=== PATIENT | male | born 1945 | race Caucasian/White ===

== ENCOUNTER 2018-02-04 15:46 | Inpatient (IN) | payer MEDICARE ==
[2018-02-04] MEDS ORDERED: ONDANSETRON 4 MG/2 ML VIAL IVP STA (16:34)
[2018-02-04] MEDS ORDERED: SODIUM CHLORIDE 0.9% 1,000 ML IV STA ×2 (16:34)
[2018-02-04] MEDS ORDERED: MORPHINE SULFATE 4 MG/ML SYRINGE IV STA (16:34)
--- NOTE | 2018-02-04 16:35 | ED ---
Abdominal Pain HPI - General Chief Complaint: Abdominal Pain Stated Complaint: Abd Pain Time Seen by Provider: 02/04/18 16:12 Source: patient Mode of arrival: ambulatory Limitations: no limitations - History of Present Illness Initial Comments: Patient is a 72-year-old male presenting for abdominal pain. Patient states that the pain started this morning and is located across his abdomen is been constant. He cannot describe the specifics of the pain but denies any radiation or modifying factors. It is associated with nausea but no vomiting or diarrhea. He also states that he performs a straight cath at least 7 times a day for bladder problems. He also states that he is not had this problem before he denies any fevers, chills, chest pain, shortness of breath. - Related Data Home Medications Medication Instructions Recorded Confirmed ALPRAZolam [ALPRAZolam XR] 0.5 mg PO DAILY 07/27/16 07/27/16 Aspirin EC [Ecotrin Low Dose] 81 mg PO DAILY 07/27/16 07/27/16 Potassium Citrate [Urocit-K] 1,080 mg PO BID 07/27/16 07/27/16 Sildenafil Citrate [Viagra] 100 mg PO ONCE 07/27/16 07/27/16 Simvastatin [Zocor] 20 mg PO DAILY 07/27/16 07/27/16 Testosterone [Androgel 1.62% Gel 2.5 gm INTRADERMA DAILY 07/27/16 07/27/16 Packet] Allergies Allergy/AdvReac Type Severity Reaction Status Date / Time iodine AdvReac sneezing Verified 02/04/18 15:53 Iodine and Iodide Containing AdvReac sneezing Verified 02/04/18 15:53 Produc Review of Systems ROS Statement: Those systems with pertinent positive or pertinent negative responses have been documented in the HPI. Constitutional: Negative for chills, fatigue and fever. HENT: Negative for congestion. Respiratory: Negative for chest tightness, shortness of breath and wheezing. Negative for cough Cardiovascular: Negative for chest pain and palpitations. Gastrointestinal: Positive for abdominal pain and nausea. Negative for abdominal distention, diarrhea, and vomiting. Genitourinary: Negative for dysuria. Musculoskeletal: Negative for back pain, neck pain and neck stiffness. Skin: Negative for color change. Neurological: Negative for dizziness, speech difficulty, weakness and light- headedness. Psychiatric/Behavioral: Negative for agitation and confusion. Negative for anxiety ROS Other: All systems not noted in ROS Statement are negative. Past Medical History Past Medical History: Cancer, Hyperlipidemia Additional Past Medical History / Comment(s): Bladder CA 2008, colon polyps, CAD , Cholelithiasis, chronic pancreatitis History of Any Multi-Drug Resistant Organisms: Unobtainable Past Surgical History: Heart Catheterization Additional Past Surgical History / Comment(s): custectomy with dillan bladder replacements, sinus surgery, colonoscopy Past Anesthesia/Blood Transfusion Reactions: Unable to Obtain Past Psychological History: Anxiety Smoking Status: Former smoker Past Alcohol Use History: None Reported Past Drug Use History: None Reported General Exam - General Exam Comments Initial Comments: Constitutional: Pt is oriented to person, place, and time. Pt appears well- developed and well-nourished. No distress. HENT: Head: Normocephalic and atraumatic. Eyes: EOM are normal. Neck: Normal range of motion. Neck supple. Cardiovascular: Normal rate, regular rhythm, S1 normal, S2 normal and normal heart sounds. Exam reveals no gallop and no friction rub. No murmur heard. Pulmonary/Chest: Effort normal and breath sounds normal. No tachypnea and no bradypnea. No respiratory distress. No wheezes or rales noted. Abdominal: Soft. Bowel sounds are normal. Pt exhibits no shifting dullness, no distension, no pulsatile liver, no fluid wave, no abdominal bruit and no ascites. . There is no rigidity, no rebound, no guarding, no tenderness at McBurney's point and negative Calabrese's sign. There is tenderness to palpation of the lower abdomen without peritoneal signs. Abdominal scars are well-healed with no evidence of erythema or infection. Musculoskeletal: Normal range of motion. Neurological: Pt is alert and oriented to person, place, and time. No cranial nerve deficit. Skin: Skin is warm and dry. No rash noted. Pt is not diaphoretic. No erythema. No pallor. Psychiatric: Pt has a normal mood and affect. Pt behavior is normal. Thought content normal. Limitations: no limitations Course Vital Signs 02/04/18 02/04/18 02/04/18 15:51 16:30 17:34 Temperature 98.0 F 98.5 F Pulse Rate 56 L 45 L 53 L Respiratory 20 18 18 Rate Blood Pressure 167/82 136/80 165/85 O2 Sat by Pulse 99 98 100 Oximetry 02/04/18 02/04/18 02/04/18 18:34 19:07 20:50 Temperature 98.7 F 98.8 F Pulse Rate 62 64 63 Respiratory 18 18 18 Rate Blood Pressure 182/94 165/83 174/85 O2 Sat by Pulse 99 96 97 Oximetry 02/04/18 21:19 Temperature 98.0 F Pulse Rate 61 Respiratory 18 Rate Blood Pressure 116/60 O2 Sat by Pulse 100 Oximetry - Reevaluation(s) Reevaluation #1: 02/04/18 20:48 Patient continues to rate hemodynamically stable. There is mild leukocytosis at 12.3 with some evidence of urinary tract infection but this is unclear if this is truly an infection as the patient has straight catheter daily. Medical Decision Making - Medical Decision Making Laboratory studies showed that there is mild leukocytosis at 12.3 and electrolytes are relatively within normal limits. There is no evidence of transaminitis with a keratitis and urinalysis was consistent with a urinary tract infection but this is unclear if this is truly infection or chronic findings as the patient self caths. Nonetheless, he was started on Rocephin. CT was performed and showed findings either represent a partial small bowel traction or early complete small bowel obstruction. Because of this, general surgery, Dr. Peralta, was consult it and he recommended patient be admitted to medicine. Additionally, NG tube was not placed as the patient was not actively vomiting but the patient was made nothing by mouth and had continuous fluids. Explained all labs and diagnostic test results and that we will admit patient to hospital. Pt is agreeable to plan and case has been discussed with Dr. Simpson and they agree to accept the pt. - Lab Data Result diagrams: 02/04/18 16:38 02/04/18 16:38 Lab Results 02/04/18 02/04/18 02/04/18 Range/Units 16:37 16:38 16:38 WBC 12.3 H (3.8-10.6) k/uL RBC 5.33 (4.30-5.90) m/uL Hgb 14.0 (13.0-17.5) gm/dL Hct 43.5 (39.0-53.0) % MCV 81.6 (80.0-100.0) fL MCH 26.2 (25.0-35.0) pg MCHC 32.1 (31.0-37.0) g/dL RDW 15.9 H (11.5-15.5) % Plt Count 270 (150-450) k/uL Neutrophils % (Manual) 76 % Band Neutrophils % 3 % Lymphocytes % (Manual) 16 % Monocytes % (Manual) 2 % Eosinophils % (Manual) 3 % Neutrophils # (Manual) 9.70 H (1.3-7.7) k/uL Lymphocytes # (Manual) 1.97 (1.0-4.8) k/uL Monocytes # (Manual) 0.25 (0-1.0) k/uL Eosinophils # (Manual) 0.37 (0-0.7) k/uL Nucleated RBCs 0 (0-0) /100 WBC Manual Slide Review Performed Reactive Lymphocytes Present PT (9.0-12.0) sec INR (<1.2) APTT (22.0-30.0) sec Sodium 133 L (137-145) mmol/L Potassium 5.1 (3.5-5.1) mmol/L Chloride 106 (98-107) mmol/L Carbon Dioxide 14 L (22-30) mmol/L Anion Gap 13 mmol/L BUN 34 H (9-20) mg/dL Creatinine 1.20 (0.66-1.25) mg/dL Est GFR (CKD-EPI)AfAm 71 (>60 ml/min/1.73 sqM) Est GFR (CKD-EPI)NonAf 61 (>60 ml/min/1.73 sqM) Glucose 127 H (74-99) mg/dL POC Glucose (mg/dL) 127 H (75-99) mg/dL POC Glu Stippler Mohini Witt Plasma Lactic Acid Yuan (0.7-2.0) mmol/L Calcium 9.4 (8.4-10.2) mg/dL Total Bilirubin 0.6 (0.2-1.3) mg/dL AST 26 (17-59) U/L ALT 33 (21-72) U/L Alkaline Phosphatase 94 (38-126) U/L Troponin I (0.000-0.034) ng/mL Total Protein 8.2 (6.3-8.2) g/dL Albumin 4.5 (3.5-5.0) g/dL Lipase 93 (23-300) U/L Urine Color Urine Appearance (Clear) Urine pH (5.0-8.0) Ur Specific Ovid (1.001-1.035) Urine Protein (Negative) Urine Glucose (UA) (Negative) Urine Ketones (Negative) Urine Blood (Negative) Urine Nitrite (Negative) Urine Bilirubin (Negative) Urine Urobilinogen (<2.0) mg/dL Ur Leukocyte Esterase (Negative) Urine RBC (0-5) /hpf Urine WBC (0-5) /hpf Urine WBC Clumps (None) /hpf Ur Squamous Epith Cells (0-4) /hpf Urine Bacteria (None) /hpf Urine Mucus (None) /hpf 02/04/18 02/04/18 02/04/18 Range/Units 16:38 16:38 16:38 WBC (3.8-10.6) k/uL RBC (4.30-5.90) m/uL Hgb (13.0-17.5) gm/dL Hct (39.0-53.0) % MCV (80.0-100.0) fL MCH (25.0-35.0) pg MCHC (31.0-37.0) g/dL RDW (11.5-15.5) % Plt Count (150-450) k/uL Neutrophils % (Manual) % Band Neutrophils % % Lymphocytes % (Manual) % Monocytes % (Manual) % Eosinophils % (Manual) % Neutrophils # (Manual) (1.3-7.7) k/uL Lymphocytes # (Manual) (1.0-4.8) k/uL Monocytes # (Manual) (0-1.0) k/uL Eosinophils # (Manual) (0-0.7) k/uL Nucleated RBCs (0-0) /100 WBC Manual Slide Review Reactive Lymphocytes PT 10.0 (9.0-12.0) sec INR 1.0 (<1.2) APTT 21.5 L (22.0-30.0) sec Sodium (137-145) mmol/L Potassium (3.5-5.1) mmol/L Chloride (98-107) mmol/L Carbon Dioxide (22-30) mmol/L Anion Gap mmol/L BUN (9-20) mg/dL Creatinine (0.66-1.25) mg/dL Est GFR (CKD-EPI)AfAm (>60 ml/min/1.73 sqM) Est GFR (CKD-EPI)NonAf (>60 ml/min/1.73 sqM) Glucose (74-99) mg/dL POC Glucose (mg/dL) (75-99) mg/dL POC Glu Stippler ID Plasma Lactic Acid Yuan 1.1 (0.7-2.0) mmol/L Calcium (8.4-10.2) mg/dL Total Bilirubin (0.2-1.3) mg/dL AST (17-59) U/L ALT (21-72) U/L Alkaline Phosphatase (38-126) U/L Troponin I <0.012 (0.000-0.034) ng/mL Total Protein (6.3-8.2) g/dL Albumin (3.5-5.0) g/dL Lipase (23-300) U/L Urine Color Urine Appearance (Clear) Urine pH (5.0-8.0) Ur Specific Ovid (1.001-1.035) Urine Protein (Negative) Urine Glucose (UA) (Negative) Urine Ketones (Negative) Urine Blood (Negative) Urine Nitrite (Negative) Urine Bilirubin (Negative) Urine Urobilinogen (<2.0) mg/dL Ur Leukocyte Esterase (Negative) Urine RBC (0-5) /hpf Urine WBC (0-5) /hpf Urine WBC Clumps (None) /hpf Ur Squamous Epith Cells (0-4) /hpf Urine Bacteria (None) /hpf Urine Mucus (None) /hpf 02/04/18 Range/Units 17:32 WBC (3.8-10.6) k/uL RBC (4.30-5.90) m/uL Hgb (13.0-17.5) gm/dL Hct (39.0-53.0) % MCV (80.0-100.0) fL MCH (25.0-35.0) pg MCHC (31.0-37.0) g/dL RDW (11.5-15.5) % Plt Count (150-450) k/uL Neutrophils % (Manual) % Band Neutrophils % % Lymphocytes % (Manual) % Monocytes % (Manual) % Eosinophils % (Manual) % Neutrophils # (Manual) (1.3-7.7) k/uL Lymphocytes # (Manual) (1.0-4.8) k/uL Monocytes # (Manual) (0-1.0) k/uL Eosinophils # (Manual) (0-0.7) k/uL Nucleated RBCs (0-0) /100 WBC Manual Slide Review Reactive Lymphocytes PT (9.0-12.0) sec INR (<1.2) APTT (22.0-30.0) sec Sodium (137-145) mmol/L Potassium (3.5-5.1) mmol/L Chloride (98-107) mmol/L Carbon Dioxide (22-30) mmol/L Anion Gap mmol/L BUN (9-20) mg/dL Creatinine (0.66-1.25) mg/dL Est GFR (CKD-EPI)AfAm (>60 ml/min/1.73 sqM) Est GFR (CKD-EPI)NonAf (>60 ml/min/1.73 sqM) Glucose (74-99) mg/dL POC Glucose (mg/dL) (75-99) mg/dL POC Glu Stippler ID Plasma Lactic Acid Yuan (0.7-2.0) mmol/L Calcium (8.4-10.2) mg/dL Total Bilirubin (0.2-1.3) mg/dL AST (17-59) U/L ALT (21-72) U/L Alkaline Phosphatase (38-126) U/L Troponin I (0.000-0.034) ng/mL Total Protein (6.3-8.2) g/dL Albumin (3.5-5.0) g/dL Lipase (23-300) U/L Urine Color Light Yellow Urine Appearance Cloudy (Clear) Urine pH 6.5 (5.0-8.0) Ur Specific Ovid 1.009 (1.001-1.035) Urine Protein 1+ H (Negative) Urine Glucose (UA) Negative (Negative) Urine Ketones Negative (Negative) Urine Blood Trace H (Negative) Urine Nitrite Positive (Negative) Urine Bilirubin Negative (Negative) Urine Urobilinogen <2.0 (<2.0) mg/dL Ur Leukocyte Esterase Large H (Negative) Urine RBC 11 H (0-5) /hpf Urine WBC 160 H (0-5) /hpf Urine WBC Clumps Few H (None) /hpf Ur Squamous Epith Cells <1 (0-4) /hpf Urine Bacteria Many H (None) /hpf Urine Mucus Rare H (None) /hpf - EKG Data EKG Comments: EKG shows sinus bradycardia with a rate of 46. CO interval 142, QRS 96, QTC 441. There is no significant ST depressions or elevations. Disposition Clinical Impression: Small bowel obstruction, Urinary tract infection Disposition: ADMITTED IP TO THIS [facility] Condition: Fair Referrals: Gilberto Holland DO [Primary Care Provider] - 1-2 days Decision to Admit Reason: Admit from EC Decision Date: 02/04/18 Decision Time: 21:54
[2018-02-04 16:38] LABS: Glucose,Whole Blood 127 mg/dL (75-99)
[2018-02-04 17:02] LABS: Albumin 4.5 g/dL (3.5-5.0); Calcium 9.4 mg/dL (8.4-10.2); Potassium 5.1 mmol/L (3.5-5.1); Total Bilirubin 0.6 mg/dL (0.2-1.3); Total Protein 8.2 g/dL (6.3-8.2)
[2018-02-04 17:16] LABS: HCT 43.5 % (39.0-53.0); MCH 26.2 pg (25.0-35.0); MCHC 32.1 g/dL (31.0-37.0); MCV 81.6 fL (80.0-100.0); Mean Platelet Volume 6.6; Platelet Count 270 k/uL (150-450); RBC 5.33 m/uL (4.30-5.90); RDW 15.9 % (11.5-15.5); WBC 12.3 k/uL (3.8-10.6)
[2018-02-04 17:17] LABS: Partial Thromboplastin Time 21.5 sec (22.0-30.0)
[2018-02-04 17:44] LABS: Band Neutrophils % 3 %; Eosinophils # (M) 0.37 k/uL (0-0.7); Lymphocytes # (M) 1.97 k/uL (1.0-4.8); Monocytes # (M) 0.25 k/uL (0-1.0); Neutrophils % (M) 76 %; Nucleated Red Blood Cells 0 /100 WBC (0-0); Reactive Lymphocytes Present; Total Cells Counted 100
[2018-02-04 17:51] LABS: Appearance,Urine Cloudy (Clear); Bacteria,Urine Many /hpf; Bilirubin,Urine Negative (Negative); Blood,Urine Trace (Negative); Color,Urine Light Yellow; Glucose,Urine (UA) Negative (Negative); Ketones,Urine Negative (Negative); Leukocyte Esterase,Urine Large (Negative); Mucus,Urine Rare /hpf; Nitrite,Urine Positive (Negative); PH, Urine 6.5 (5.0-8.0); Protein,Urine 1+ (Negative); RBC,Urine 11 /hpf (0-5); Specific Gravity,Urine 1.009 (1.001-1.035); Squamous Epithelial Cell,Urine <1 /hpf (0-4); Urobilinogen,Urine <2.0 mg/dL (<2.0); WBC,Urine 160 /hpf (0-5)
[2018-02-04] MEDS ORDERED: BARIUM SULFATE 450 ML ORAL.SUSP BOTTLE PO PRN (17:59)
[2018-02-04] MEDS ORDERED: methylPREDNISolone SOD SUCCI 125 MG/2 ML VIAL IV STA (18:10)
[2018-02-04] MEDS ORDERED: diphenhydrAMINE 50 MG/ML 1 ML VIAL IVP STA (18:10)
[2018-02-04] MEDS ORDERED: FAMOTIDINE 20 MG/2 ML VIAL IV STA (18:10)
[2018-02-04] MEDS ORDERED: HYDROmorphone 0.5 MG/0.5 ML SYRINGE IVP STA (18:16)
[2018-02-04] MEDS ORDERED: cefTRIAXone IN SWFI 1,000 MG/10 ML SYRINGE IVP STA (20:47)
--- NOTE | 2018-02-04 20:54 | CT ---
EXAMINATION TYPE: CT abdomen pelvis wo con DATE OF EXAM: 02/04/2018 COMPARISON: 12/26/2013 HISTORY: Lower abdominal pain with nausea today. CT DLP: 566.2 mGycm Automated exposure control for dose reduction was used. TECHNIQUE: Helical acquisition of images was performed from the lung bases through the pelvis. FINDINGS: LUNG BASES: Early fibrotic changes are seen at the lung bases. Small hiatal hernia is also noted. LIVER/GB: Multiple dense gallstones are seen of the gallbladder neck and body. PANCREAS: There is new prominence of the pancreatic head and uncinate process on series 3 image 30 th rough 34, however there is no ductal dilatation and there is proximal atrophy of the pancreas with di ffuse parenchymal calcifications from chronic pancreatitis. SPLEEN: No significant abnormality is seen. ADRENALS: No significant abnormality is seen. KIDNEYS: There is left-sided renal pelvic prominence and uroepithelial thickening such as on series 3 image 36. No calyceal dilatation to suggest current hydronephrosis. Findings could be reactive and i nflammatory.. REPRODUCTIVE ORGANS: Heterogenous containing central zone calcifications. URINARY BLADDER: The urinary bladder is elongated and may be tethered by prior adhesions as it abuts the anastomotic small bowel site, however there is no air within the urinary bladder to currently julien ggest fistulization. Surgical clips are seen in the inferior margin of the urinary bladder. ADENOPATHY: No greater than 1 cm short axis lymph node within the abdomen or pelvis. OSSEOUS STRUCTURES: Multilevel degenerative change of the spine. BOWEL: There are multiple loops of dilated small bowel throughout the abdomen some of which contain small bowel feces sign. There is a distal small bowel anastomotic site with both proximal and distal dilatation at the anastomotic site. Just proximal to the anastomotic site on series 3 image 70 throug h 73 there is an area of caliber narrowing of the small bowel without beaking suggesting incomplete s mall bowel obstruction/partial small bowel obstruction or early developing complete small bowel obstr uction. Again there is dilatation after the anastomotic site and dilatation of the terminal ileum wit h partially fluid filled cecum. No large bowel dilatation although the large bowel is also not collap sed. Few scattered diverticula are noted of the large bowel. There is mild mesenteric congestion and perienteric fat stranding. OTHER: Numerous surgical clips are seen within the pelvis. Extensive vascular calcifications are note d of the abdominal aorta and its branches. IMPRESSION: 1. FINDINGS EITHER REPRESENTING PARTIAL SMALL BOWEL OBSTRUCTION OR EARLY COMPLETE SMALL BOWEL OBSTRUC TION THERE IS FOCAL AREA OF NARROWING OF THE DISTAL ILEUM PROXIMAL TO THE ANASTOMOTIC SITE WITHOUT CURRENT BEAKING. HOWEVER THE ILEUM REMAINS DILATED DISTAL TO THE ANASTOMOTIC SITE. THERE IS ALSO AD JACENT PERIENTERIC MESENTERIC CONGESTION AND INFLAMMATORY FAT STRANDING. 2. NEW PROMINENCE OF THE PANCREATIC HEAD WITHOUT DUCTAL DILATATION IS SEEN. FURTHER EVALUATION WITH T HREE-PHASE ENHANCED ABDOMEN IS RECOMMENDED TO ENSURE NO UNDERLYING PANCREATIC MASS IN THIS PATIENT WI TH CHRONIC PANCREATITIS SEQUELA. 3. TENTING AND TETHERING OF THE URINARY BLADDER ADJACENT TO THE SMALL BOWEL ANASTOMOTIC SITE WITHOUT AIR IN THE URINARY BLADDER TO SUGGEST CURRENT FISTULIZATION. 4. LEFT RENAL PELVIC MILD DILATATION WITHOUT HYDRONEPHROSIS IN ADDITION TO LEFT RENAL PELVIC UROEPITH ELIAL THICKENING. THIS COULD BE REACTIVE TO THE ADJACENT INFLAMMATORY PROCESS. NO OBSTRUCTING STONE I S SEEN. 5. CHOLELITHIASIS.
[2018-02-04] MEDS ORDERED: MORPHINE SULFATE 4 MG/ML SYRINGE IVP STA (21:27)
[2018-02-04] MEDS ORDERED: ONDANSETRON 4 MG/2 ML VIAL IVP PRN (21:56)
[2018-02-04] MEDS ORDERED: NALOXONE 0.4 MG/ML 1 ML VIAL IV PRN (21:56)
[2018-02-04] MEDS ORDERED: MORPHINE SULFATE 4 MG/ML SYRINGE IV PRN (21:56)
[2018-02-04] MEDS: SODIUM CHLORIDE 0.9% 1,000 ML IV SCH (22:23)
[2018-02-04 23:27] VITALS: BMI 26.6
--- NOTE | 2018-02-05 12:21 | P.GSCN ---
History of Present Illness Consult date: 02/05/18 History of present illness: 72-year-old male presents to the emergency department with complaints of generalized abdominal pain. He states that he also is feeling nauseous. He states that the symptoms began approximately 24 hours prior to his arrival to the emergency department. He states that his last bowel movement was 2 days ago and it was around that time that he also had his last episode of flatus. He is noted to have a history of bladder cancer and has had a neobladder creation at the [facility]. He denies ever having this type of pain or symptoms previously. He states that recently he has been performing straight catheterization for urination. CT of the abdomen and pelvis was performed in the emergency department and the small bowel obstruction was diagnosed. The patient was noted to have distended loops of bowel and a distended stomach. Nasogastric tube was not placed by the emergency department. Review of Systems All systems: negative Past Medical History Past Medical History: Cancer, Hyperlipidemia Additional Past Medical History / Comment(s): Bladder CA 2008, colon polyps, CAD , Cholelithiasis, chronic pancreatitis History of Any Multi-Drug Resistant Organisms: Unobtainable Past Surgical History: Heart Catheterization Additional Past Surgical History / Comment(s): custectomy with dillan bladder replacements, sinus surgery, colonoscopy Past Anesthesia/Blood Transfusion Reactions: Unable to Obtain Past Psychological History: Anxiety Smoking Status: Former smoker Past Alcohol Use History: None Reported Past Drug Use History: None Reported Medications and Allergies Home Medications Medication Instructions Recorded Confirmed Type ALPRAZolam [ALPRAZolam XR] 0.5 mg PO Q6H PRN 07/27/16 02/05/18 History Aspirin EC [Ecotrin Low Dose] 81 mg PO DAILY 07/27/16 02/05/18 History Simvastatin [Zocor] 20 mg PO DAILY 07/27/16 02/05/18 History Testosterone [Androgel 1.62% Gel 2.5 gm INTRADERMA DAILY 07/27/16 02/05/18 History Packet] Atenolol [Tenormin] 25 mg PO DAILY 02/05/18 02/05/18 History Potassium Citrate [Potassium 40 meq PO DAILY 02/05/18 02/05/18 History Citrate ER] Allergies Allergy/AdvReac Type Severity Reaction Status Date / Time iodine AdvReac sneezing Verified 02/05/18 11:46 Iodine and Iodide Containing AdvReac sneezing Verified 02/05/18 11:46 Produc Surgical - Exam Osteopathic Statement: *. No significant issues noted on an osteopathic structural exam other than those noted in the History and Physical/Consult. Vital Signs Temp Pulse Resp BP Pulse Ox 98.0 F 56 L 20 167/82 99 02/04/18 15:51 02/04/18 15:51 02/04/18 15:51 02/04/18 15:51 02/04/18 15:51 - General well nourished, no distress - Eyes PERRL - Neck trachea midline - Respiratory No difficulty with respiration - Abdomen Soft, mildly tender in his generalized abdomen, moderate distention, no rebound , no guarding - Neurologic normal coordination, normal sensation - Psychiatric oriented to time, oriented to person, oriented to place, speech is normal Results - Labs 02/04/18 16:38 02/04/18 16:38 Abnormal Lab Results - Last 24 Hours (Table) 02/04/18 02/04/18 02/04/18 Range/Units 16:37 16:38 16:38 WBC 12.3 H (3.8-10.6) k/uL RDW 15.9 H (11.5-15.5) % Neutrophils # (Manual) 9.70 H (1.3-7.7) k/uL APTT (22.0-30.0) sec Sodium 133 L (137-145) mmol/L Carbon Dioxide 14 L (22-30) mmol/L BUN 34 H (9-20) mg/dL Glucose 127 H (74-99) mg/dL POC Glucose (mg/dL) 127 H (75-99) mg/dL Urine Protein (Negative) Urine Blood (Negative) Ur Leukocyte Esterase (Negative) Urine RBC (0-5) /hpf Urine WBC (0-5) /hpf Urine WBC Clumps (None) /hpf Urine Bacteria (None) /hpf Urine Mucus (None) /hpf 02/04/18 02/04/18 Range/Units 16:38 17:32 WBC (3.8-10.6) k/uL RDW (11.5-15.5) % Neutrophils # (Manual) (1.3-7.7) k/uL APTT 21.5 L (22.0-30.0) sec Sodium (137-145) mmol/L Carbon Dioxide (22-30) mmol/L BUN (9-20) mg/dL Glucose (74-99) mg/dL POC Glucose (mg/dL) (75-99) mg/dL Urine Protein 1+ H (Negative) Urine Blood Trace H (Negative) Ur Leukocyte Esterase Large H (Negative) Urine RBC 11 H (0-5) /hpf Urine WBC 160 H (0-5) /hpf Urine WBC Clumps Few H (None) /hpf Urine Bacteria Many H (None) /hpf Urine Mucus Rare H (None) /hpf Microbiology - Last 24 Hours (Table) 02/04/18 17:32 Urine Culture - Preliminary Urine,Catheterized Diabetes panel 02/04/18 Range/Units 16:38 Sodium 133 L (137-145) mmol/L Potassium 5.1 (3.5-5.1) mmol/L Chloride 106 (98-107) mmol/L Carbon Dioxide 14 L (22-30) mmol/L BUN 34 H (9-20) mg/dL Creatinine 1.20 (0.66-1.25) mg/dL Glucose 127 H (74-99) mg/dL Calcium 9.4 (8.4-10.2) mg/dL AST 26 (17-59) U/L ALT 33 (21-72) U/L Alkaline Phosphatase 94 (38-126) U/L Total Protein 8.2 (6.3-8.2) g/dL Albumin 4.5 (3.5-5.0) g/dL Calcium panel 02/04/18 Range/Units 16:38 Calcium 9.4 (8.4-10.2) mg/dL Albumin 4.5 (3.5-5.0) g/dL Pituitary panel 02/04/18 Range/Units 16:38 Sodium 133 L (137-145) mmol/L Potassium 5.1 (3.5-5.1) mmol/L Chloride 106 (98-107) mmol/L Carbon Dioxide 14 L (22-30) mmol/L BUN 34 H (9-20) mg/dL Creatinine 1.20 (0.66-1.25) mg/dL Glucose 127 H (74-99) mg/dL Calcium 9.4 (8.4-10.2) mg/dL Adrenal panel 02/04/18 Range/Units 16:38 Sodium 133 L (137-145) mmol/L Potassium 5.1 (3.5-5.1) mmol/L Chloride 106 (98-107) mmol/L Carbon Dioxide 14 L (22-30) mmol/L BUN 34 H (9-20) mg/dL Creatinine 1.20 (0.66-1.25) mg/dL Glucose 127 H (74-99) mg/dL Calcium 9.4 (8.4-10.2) mg/dL Total Bilirubin 0.6 (0.2-1.3) mg/dL AST 26 (17-59) U/L ALT 33 (21-72) U/L Alkaline Phosphatase 94 (38-126) U/L Total Protein 8.2 (6.3-8.2) g/dL Albumin 4.5 (3.5-5.0) g/dL - Imaging CT scan - abdomen: report reviewed, image reviewed (Likely developing small bowel obstruction with distended loops of small bowel and distended stomach) CT scan - pelvis: report reviewed, image reviewed Assessment and Plan (1) Small bowel obstruction Narrative/Plan: 72-year-old male with small bowel obstruction - Due to continued moderate distention and continued nausea per the patient, we' ll place NG tube - Nothing by mouth - Anti-emetics for nausea relief - Due to the history of neobladder and bladder cancer, if any concerns for urinary symptoms, recommend urology consultation - Will await bowel function after nasogastric decompression Thank you for this consultation, I look forward in providing in this patient's care. Current Visit: Yes Status: Acute Code(s): K56.609 - UNSP INTESTNL OBST, UNSP TO PARTIAL VERSUS COMPLETE OBST SNOMED Code(s): 819503090
[2018-02-05] MEDS ORDERED: SODIUM CHLORIDE 0.9% 1,000 ML IV ONE (14:05)
[2018-02-05] MEDS: SODIUM CHLORIDE 0.9% 1,000 ML IV SCH (14:09)
[2018-02-05] MEDS ORDERED: MELATONIN 3 MG TABLET PO PRN (15:26)
[2018-02-05] MEDS ORDERED: CALCIUM CARBONATE 500 MG CHEWABLE PO PRN (15:26)
[2018-02-05] MEDS: ATENOLOL 25 MG TAB PO SCH (16:54)
[2018-02-05] MEDS: SODIUM CHLORIDE 0.9% 1,000 ML with SODIUM BICARB (1 MEQ/ML) 50 ML IV SCH ×2 (16:59)
[2018-02-05] MEDS: cefTRIAXone IN SWFI 1,000 MG/10 ML SYRINGE IVP SCH (17:00)
[2018-02-05] MEDS: ENOXAPARIN 40 MG/0.4 ML SYRINGE SQ SCH (17:00)
--- NOTE | 2018-02-05 18:06 | HP ---
HISTORY AND PHYSICAL DATE OF ADMISSION: 02/04/18. DATE OF SERVICE: 02/05/18 PRESENTING COMPLAINT: Abdominal pain. HISTORY OF PRESENTING COMPLAINT: A very pleasant 72-year-old patient of Dr. Holland. Chronic stable medical conditions include hyperlipidemia, chronic stable angina. The patient had a cardiac catheterization about 2 years ago, found about 35% blockage and managed medically by Dr. Metcalf, anxiety that is stable. The patient had bladder cancer back in 2007 and the patient had gone to [facility] where a new bladder was created. The patient did well for about 5 years and then patient had to start doing self catheterization; that is for close to about 7 years. Yesterday evening patient started off with lower abdominal pain and it progressed to get much worse, diffuse in nature. The patient is having nausea. Only after patient got admitted the patient did vomit earlier today once. There was no fever and chills. Normally patient has a bowel movement once or twice a day. The pain was more to the lower abdomen, did not radiate anywhere. The patient did have a CT scan of the abdomen in the ER that showed multiple small bowel air-fluid levels and some narrowing in the distal colon. This afternoon NG tube was ordered by General Surgery. ER physician has spoken to General Surgery from the ER. The patient has not passed any flatus since yesterday morning. REVIEW OF SYSTEMS: CONSTITUTIONAL: Tired. HEENT: None. RESPIRATORY: None. CARDIOVASCULAR: None. GASTROINTESTINAL: As above. GENITOURINARY: As above. MUSCULOSKELETAL: None. DERMATOLOGICAL: None. HEMATOLOGIC: None. LYMPHATIC: None. PSYCHIATRY: None. NEUROLOGICAL: None. PAST MEDICAL HISTORY: Bladder cancer, hyperlipidemia, angina, nonobstructive 30% coronary artery disease, anxiety, cholelithiasis, chronic pancreatitis, colon polyps. PAST SURGICAL HISTORY: Cardiac catheterization, neobladder formation, sinus surgery. SOCIAL HISTORY: Alone, retired. No smoking. No alcohol. FAMILY HISTORY: Reviewed, noncontributory to presentation. HOME MEDICATIONS: 1. AndroGel 1.62% 2.5 interdermal daily. 2. Zocor 20 mg p.o. daily. 3. Potassium 40 mEq p.o. daily. 4. Tenormin 25 mg p.o. daily. 5. Aspirin 81 mg p.o. daily. 6. Xanax XR 0.5 q.6h p.r.n. ALLERGIES: To IODINE CONTAINING PRODUCTS. PHYSICAL EXAMINATION: Vital signs on presentation: Temperature 98, pulse 56, respiration 20, blood pressure 167/82, pulse ox 99% on room air. GENERAL APPEARANCE: Average built, sitting up, not in distress. Anxious appearing. EYES: Pupils equal. Conjunctivae normal. HEENT: External appearance of nose and ears normal. Oral cavity a bit dry. NECK: JVD not raised. Mass not palpable. RESPIRATORY: Effort normal. Lungs, fair entry. CARDIOVASCULAR: First and second sounds, no edema. ABDOMEN: Diffuse tenderness. No guarding or rigidity. Liver and spleen not palpable. LYMPHATIC: No lymph node palpable in neck or axillae. PSYCHIATRY: Alert and oriented x3. Mood and affect slightly anxious-appearing. NEUROLOGICAL: Pupils equal. Cranial nerves grossly intact. Power and sensation grossly intact. INVESTIGATIONS: White count 12.3, hemoglobin 14, potassium 5.1, bicarb 14, BUN 34, creatinine 1.20. UA positive for leukocyte esterase, WBC, RBC. CT scan of the abdomen and pelvis showing multiple air-fluid levels of small bowel, some restriction of distal small-bowel, gallstones. ASSESSMENT: 1. Acute severe small-bowel obstruction with prior abdominal surgery for bladder cancer with abdominal tenderness. The patient did vomit x1 today. Will be getting NG tube. 2. Possible acute urinary tract infection from cystitis. 3. Metabolic acidosis. 4. Hyperlipidemia. 5. Chronic stable angina with nonobstructive coronary artery disease with 30% per cardiac catheterization. 6. Hypotestosteronism. 7. Hyperlipidemia. 8. Anxiety, not otherwise specified. PLAN: The patient is getting NG tube, IV fluids with subcu heparin for DVT prophylaxis. We will also add bicarb to the IV fluids. Care was discussed with the patient. Questions were answered. MMODL / IJN: [id number] /
[2018-02-06] MEDS: SODIUM CHLORIDE 0.9% 1,000 ML with SODIUM BICARB (1 MEQ/ML) 50 ML IV SCH ×6 (01:48→20:24)
[2018-02-06 08:43] LABS: Anisocytosis Slight; HCT 39.8 % (39.0-53.0); HGB 12.6 gm/dL (13.0-17.5); MCH 26.4 pg (25.0-35.0); MCHC 31.7 g/dL (31.0-37.0); MCV 83.2 fL (80.0-100.0); Mean Platelet Volume 6.1; Platelet Count 256 k/uL (150-450); RBC 4.79 m/uL (4.30-5.90); RDW 16.3 % (11.5-15.5); WBC 8.1 k/uL (3.8-10.6)
[2018-02-06] MEDS: ENOXAPARIN 40 MG/0.4 ML SYRINGE SQ SCH (08:43)
[2018-02-06] MEDS: cefTRIAXone IN SWFI 1,000 MG/10 ML SYRINGE IVP SCH (08:43)
[2018-02-06] MEDS: ATENOLOL 25 MG TAB PO SCH (08:44)
[2018-02-06 08:51] LABS: Potassium 4.1 mmol/L (3.5-5.1)
[2018-02-06 09:31] LABS: Band Neutrophils % 39 %; Eosinophils # (M) 0.08 k/uL (0-0.7); Lymphocytes # (M) 1.13 k/uL (1.0-4.8); Metamyelocytes # (M) 0.57 k/uL (0); Metamyelocytes % 7 %; Monocytes # (M) 0.89 k/uL (0-1.0); Myelocytes # (M) 0.16 k/uL (0); Myelocytes % 2 %; Neutrophils % (M) 28 %; Nucleated Red Blood Cells 0 /100 WBC (0-0); Total Cells Counted 200; Toxic Vacuolation Present
[2018-02-06 09:33] LABS: Toxic Granulation Present
--- NOTE | 2018-02-06 15:17 | P.PN ---
Subjective Progress Note Date: 02/06/18 Patient seen and examined at bedside. He states that he is feeling much better today. NG tube was placed and approximately 5 L were immediately drained. He states that he did pass a small amount of flatus earlier today. He denies any nausea and vomiting. He has no additional complaints. He states his abdominal pain is much improved. Objective - Vital Signs Vital signs: Vital Signs Temp 97.3 F L 02/06/18 15:02 Pulse 59 L 02/06/18 15:02 Resp 16 02/06/18 15:02 BP 153/73 02/06/18 15:02 Pulse Ox 95 02/06/18 15:02 Intake & Output 02/05/18 02/06/18 02/06/18 18:59 06:59 18:59 Intake Total 0 1125 Output Total 300 2150 650 Balance -300 -1025 -650 Intake: Intake, IV Titration 1125 Amount Sodium Chloride 0.9% 1, 1125 000 ml @ 125 mls/hr IV . Q8H24M GIL with Sodium Bicarb (1 Meq/ml) 50 ml Rx#:[id number] Oral 0 0 Output: Drainage 1200 Left 1200 Urine 300 950 650 Other: Voiding Method Self-Catheterization Self-Catheterization Self-Catheterization # Voids 2 - Constitutional General appearance: Present: cooperative, no acute distress - Respiratory Details: No difficulty with respiration - Gastrointestinal Gastrointestinal Comment(s): Soft, much improved distention, no tenderness, no rebound, no guarding - Psychiatric Psychiatric: Present: A&O x's 3 - Labs CBC & Chem 7: 02/06/18 08:07 02/06/18 08:07 Labs: Abnormal Lab Results - Last 24 Hours (Table) 02/06/18 02/06/18 Range/Units 08:07 08:07 Hgb 12.6 L (13.0-17.5) gm/dL RDW 16.3 H (11.5-15.5) % Metamyelocytes # (Man) 0.57 H (0) k/uL Myelocytes # (Manual) 0.16 H (0) k/uL BUN 58 H (9-20) mg/dL Creatinine 2.21 H (0.66-1.25) mg/dL Glucose 144 H (74-99) mg/dL Calcium 8.0 L (8.4-10.2) mg/dL Microbiology - Last 24 Hours (Table) 02/04/18 17:32 Urine Culture - Preliminary Urine,Catheterized Gram Neg Bacilli 02/04/18 16:38 Blood Culture - Preliminary Blood No Growth after 24 hours Assessment and Plan (1) Small bowel obstruction Narrative/Plan: 72-year-old male with small bowel obstruction - Nasogastric decompression has successfully drained approximately 5 L, the patient feels much improved - Apparently small amount of flatus, will await further bowel function - Anti-emetics for nausea relief - Due to the history of neobladder and bladder cancer, if any concerns for urinary symptoms, recommend urology consultation - Will obtain abdominal x-ray in a.m. to evaluate progress of obstruction Current Visit: Yes Status: Acute Code(s): K56.609 - UNSP INTESTNL OBST, UNSP TO PARTIAL VERSUS COMPLETE OBST SNOMED Code(s): 503481897
--- NOTE | 2018-02-06 17:31 | PN ---
PROGRESS NOTE DATE OF SERVICE: 02/06/18 PRESENTING COMPLAINT: Abdominal pain. INTERVAL HISTORY: This patient presented with small bowel obstruction, has NG tube. Put out close to 5 L. Doing much better. No nausea, vomiting. Abdominal pain is greatly improved. The patient did have a small bowel movement and also passed some flatus. Overall feeling better. REVIEW OF SYSTEMS: Done for constitutional, cardiovascular, GI, pulmonary; relevant findings above. CURRENT MEDICATIONS: Reviewed that include IV fluids and IV ceftriaxone. PHYSICAL EXAMINATION: Temperature 97.3, pulse 59, respirations 16, blood pressure 153/73, pulse ox 95% on room air. GENERAL APPEARANCE: Lying in bed, awake. EYES: Conjunctivae normal. HEENT: External appearance of nose and ears normal. Oral cavity with NG tube in place. NECK: JVD not raised. Mass not palpable. RESPIRATORY: Effort, lungs are clear. CARDIOVASCULAR: 1st and 2nd sounds normal. No edema. ABDOMEN: Much less distended. Minimal tenderness. No spleen palpable. PSYCHIATRY: Alert and oriented x3. Mood and affect normal. INVESTIGATIONS: White count 8.1, hemoglobin 12.6, potassium 4.1, BUN 58, creatinine 2.21. Urine culture growing gram-negative bacilli. ASSESSMENT: 1. Acute severe small-bowel obstruction with prior abdominal surgery for bladder cancer with abdominal tenderness, now responding to NG tube. 2. Acute urinary tract infection from cystitis showing gram-negative bacilli. 3. Acute renal failure likely prerenal from excessive fluid loss, new diagnosis today. 4. Metabolic acidosis. 5. Hyperlipidemia. 6. Chronic stable angina with nonobstructive coronary artery disease with 30% cardiac catheterization. 7. Hypotestosteronism. 8. Hyperlipidemia. 9. Anxiety, not otherwise specified. PLAN: At this point we will increase patient's IV fluids to 150 mL/h. The patient will have repeat chest x-ray in the morning. Care was discussed with the patient. Questions were answered. Follow with Surgery. MMODL / IJN: [id number] /
[2018-02-07] MEDS: SODIUM CHLORIDE 0.9% 1,000 ML with SODIUM BICARB (1 MEQ/ML) 50 ML IV SCH ×8 (01:16→22:19)
[2018-02-07] MEDS: cefTRIAXone IN SWFI 1,000 MG/10 ML SYRINGE IVP SCH (08:06)
[2018-02-07] MEDS: ATENOLOL 25 MG TAB PO SCH (08:06)
[2018-02-07 08:20] LABS: Calcium 8.3 mg/dL (8.4-10.2); Potassium 3.9 mmol/L (3.5-5.1)
[2018-02-07] MEDS ORDERED: ENOXAPARIN 30 MG/0.3 ML SYRINGE SQ SCH (09:00)
--- NOTE | 2018-02-07 12:12 | XR ---
EXAMINATION TYPE: XR abdomen 2V DATE OF EXAM: 02/07/2018 COMPARISON: 02/04/2018 HISTORY: Abdominal pain and distention TECHNIQUE: One view abdominal series FINDINGS: The osseous structures are intact. The bowel gas pattern is nonspecific. Bilateral tiny pleural effu sions and subsegmental consolidation. NG tube noted. There are prominent small bowel loops with air-f luid levels in the upper abdomen. Surgical clips are seen in the pelvis there is arthropathy of the hips and hypertrophic change of the spine. Calcification seen in upper abdomen could be pancreatic. Supine image limits assessment for free air. Vascular calcifications are noted. There is contrast within the left colon. IMPRESSION: 1. Persistent dilated small bowel loops in a pattern highly suggestive of small bowel obstruction.
--- NOTE | 2018-02-07 14:08 | P.PN ---
Subjective Progress Note Date: 02/07/18 Patient seen and examined at bedside. He states that he had 2 bowel movements yesterday and one episode of diarrhea today. He states that he has had some flatus. NG tube output has decreased. Objective - Vital Signs Vital signs: Vital Signs Temp 97 F L 02/07/18 05:00 Pulse 57 L 02/07/18 05:00 Resp 17 02/07/18 05:00 BP 141/72 02/07/18 05:00 Pulse Ox 96 02/06/18 23:00 Intake & Output 02/06/18 02/07/18 02/07/18 18:59 06:59 18:59 Intake Total 0 Output Total 650 800 500 Balance -650 -800 -500 Weight 77.111 kg Intake: Oral 0 Output: Urine 650 800 500 Other: Voiding Method Self-Catheterization Self-Catheterization Self-Catheterization # Voids 2 600 - Constitutional General appearance: Present: cooperative, no acute distress - Respiratory Details: No difficulty with respiration - Gastrointestinal Gastrointestinal Comment(s): Soft, nontender, nondistended, no rebound, no guarding - Psychiatric Psychiatric: Present: A&O x's 3 - Labs CBC & Chem 7: 02/06/18 08:07 02/07/18 07:26 Labs: Abnormal Lab Results - Last 24 Hours (Table) 02/07/18 Range/Units 07:26 Sodium 152 H (137-145) mmol/L Chloride 112 H (98-107) mmol/L Carbon Dioxide 33 H (22-30) mmol/L BUN 43 H (9-20) mg/dL Creatinine 1.40 H (0.66-1.25) mg/dL Glucose 130 H (74-99) mg/dL Calcium 8.3 L (8.4-10.2) mg/dL Microbiology - Last 24 Hours (Table) 02/04/18 16:38 Blood Culture - Preliminary Blood No Growth after 48 hours 02/04/18 17:32 Urine Culture - Final Urine,Catheterized Escherichia coli Assessment and Plan (1) Small bowel obstruction Narrative/Plan: 72-year-old male with small bowel obstruction - Nasogastric decompression has been continued over the past day - Patient states he has had multiple episodes of bowel movements - I did evaluate the abdominal x-ray, radiologist did mention concern for small bowel obstruction, however the patient has had multiple bowel movements and does have air in his colon along with contrast in his colon, this reflects that there is appropriate and proper move of gas and stool, we will clamp the NG tube and try clear liquids at this time - Anti-emetics for nausea relief - Due to the history of neobladder and bladder cancer, if any concerns for urinary symptoms, recommend urology consultation Current Visit: Yes Status: Acute Code(s): K56.609 - UNSP INTESTNL OBST, UNSP TO PARTIAL VERSUS COMPLETE OBST SNOMED Code(s): 506121692
[2018-02-07 21:17] VITALS: RESP 16
[2018-02-07] MEDS: LACTATED RINGERS 1,000 ML IV SCH (23:44)
--- NOTE | 2018-02-08 04:26 | PN ---
PROGRESS NOTE DATE OF SERVICE: 02/07/2018 PRESENTING COMPLAINT: Abdominal pain. INTERVAL HISTORY: This patient presented with small bowel obstruction, had a large amount of sputum production through the NG tube. Still NG tube was in place this morning, though clamped. The patient had a bowel movement and flatus. Abdominal less distended. Pain is greatly improved. X-ray from this morning though this still shows multiple air- fluid levels. It may be noted that the patient has a dillan bladder. REVIEW OF SYSTEMS: Done for constitutional, cardiovascular, GI, pulmonary and relevant findings as above. The patient did actually walk up in the hallway. CURRENT MEDICATIONS: Reviewed that include IV ceftriaxone, IV fluids. PHYSICAL EXAMINATION: VITAL SIGNS: Temperature 97.2 pulse respirations 18, blood pressure 155/80, pulse ox 97% on room air. GENERAL APPEARANCE: Lying in bed, awake. EYES: Pupils equal. Conjunctivae normal. HEENT: External appearance of nose and ears normal. Oral cavity normal. NG tube in place. NECK: JVD not raised. Mass not palpable. RESPIRATORY effort normal. LUNGS are clear. CARDIOVASCULAR: 1st and 2nd sounds normal. No edema. ABDOMEN: Soft. Bowel sounds are present. Liver and spleen not palpable. PSYCHIATRY: Alert and oriented x3. Mood and affect normal. INVESTIGATIONS: Sodium 152, potassium 3.9, chloride 112, BUN 43, creatinine 1.40. ASSESSMENT: 1. Acute severe small-bowel obstruction with prior abdominal surgery for a dillan bladder construction for bladder cancer with clinical improvement, though x-ray still showing some air-fluid levels. NG tube remains in place. 2. Acute urinary tract infection from cystitis showing gram-negative bacilli showing E coli. 3. Acute renal failure likely prerenal from excessive fluid loss with some improvement. 4. Metabolic acidosis. 5. Hyperlipidemia. 6. Chronic stable angina from nonobstructive coronary artery disease with 30% obstruction. 7. Hypotestosterone. 8. Hyperlipidemia. 9. Anxiety not otherwise specified. 10.Hypernatremia, probably from free water deficit. PLAN: At this point, we will change the IV fluids to lactated Ringer's. Antibiotics will be continued. Further surgical plan as per Dr. Peralta. Follow. MMODL / IJN: [id number] /
[2018-02-08] MEDS: LACTATED RINGERS 1,000 ML IV SCH ×2 (07:27→18:19)
[2018-02-08] MEDS: cefTRIAXone IN SWFI 1,000 MG/10 ML SYRINGE IVP SCH (07:28)
[2018-02-08] MEDS: ATENOLOL 25 MG TAB PO SCH (07:29)
[2018-02-08] MEDS: ENOXAPARIN 40 MG/0.4 ML SYRINGE SQ SCH (07:29)
[2018-02-08 08:18] LABS: Calcium 8.1 mg/dL (8.4-10.2); Potassium 3.2 mmol/L (3.5-5.1)
--- NOTE | 2018-02-08 09:58 | P.PN ---
Subjective Progress Note Date: 02/08/18 Patient seen and examined at bedside. He states he is having a lot of flatus and multiple episodes of diarrhea. He is tolerating clear liquid diet. NG tube was removed yesterday. Denies abdominal pain Objective - Vital Signs Vital signs: Vital Signs Temp 98.3 F 02/08/18 05:00 Pulse 54 L 02/08/18 05:00 Resp 16 02/08/18 05:00 BP 142/66 02/08/18 05:00 Pulse Ox 96 02/08/18 05:00 Intake & Output 02/07/18 02/08/18 02/08/18 18:59 06:59 18:59 Intake Total 900 Output Total 1100 Balance -1100 900 Weight 77.111 kg Intake: Intake, IV Titration 900 Amount Lactated Ringers 1,000 ml 750 @ 125 mls/hr IV .Q8H GIL Rx#:[id number] Sodium Chloride 0.9% 1, 150 000 ml @ 150 mls/hr IV . Q7H GIL with Sodium Bicarb (1 Meq/ml) 50 ml Rx#:[id number] Output: Gastric Drainage 600 Urine 500 Other: Voiding Method Self-Catheterization Self-Catheterization Self-Catheterization # Voids 2 - Constitutional General appearance: Present: cooperative, no acute distress - Respiratory Details: No difficulty with respiration - Gastrointestinal Gastrointestinal Comment(s): Soft, nontender, nondistended, no rebound, no guarding - Psychiatric Psychiatric: Present: A&O x's 3 - Labs CBC & Chem 7: 02/06/18 08:07 02/08/18 07:22 Labs: Abnormal Lab Results - Last 24 Hours (Table) 02/08/18 Range/Units 07:22 Potassium 3.2 L (3.5-5.1) mmol/L Chloride 108 H (98-107) mmol/L BUN 26 H (9-20) mg/dL Glucose 108 H (74-99) mg/dL Calcium 8.1 L (8.4-10.2) mg/dL Microbiology - Last 24 Hours (Table) 02/04/18 16:38 Blood Culture - Preliminary Blood No Growth after 72 hours Assessment and Plan (1) Small bowel obstruction Narrative/Plan: 72-year-old male with small bowel obstruction, resolving - Nasogastric decompression was clamped yesterday, the patient tolerated clear liquid diet and has been having flatus and multiple diarrhea episodes - Will advance to full liquid diet - Anti-emetics for nausea relief - Due to the history of neobladder and bladder cancer, if any concerns for urinary symptoms, recommend urology consultation Current Visit: Yes Status: Acute Code(s): K56.609 - UNSP INTESTNL OBST, UNSP TO PARTIAL VERSUS COMPLETE OBST SNOMED Code(s): 165774770
--- NOTE | 2018-02-08 17:42 | PN ---
PROGRESS NOTE DATE OF SERVICE: 02/08/2018 PRESENTING COMPLAINT: Bowel obstruction. INTERVAL HISTORY: This patient presented with small-bowel obstruction yesterday. NG tube was clamped. Started on clear liquids. NG tube has now been taken out. The patient has passed flatus and some liquid stools. No more abdominal pain, has been up and about. Abdominal distention has gone down. Overall doing much better. No nausea, vomiting. REVIEW OF SYSTEMS: Done for constitutional, cardiovascular, GI, pulmonary; relevant findings as above. CURRENT MEDICATIONS: Reviewed that include: 1. Lactated Ringer's. 2. IV ceftriaxone. EXAMINATION: Temperature 98.3, pulse 54, respirations 16, blood pressure 142/66, pulse ox 96% on room air. GENERAL APPEARANCE: Sitting up on bed, comfortable. EYES: Pupils equal. Conjunctivae normal. HEENT: External appearance of nose and ears normal. Oral cavity normal. NECK: JVD not raised. Mass not palpable. RESPIRATORY: Effort normal. Lungs are clear. CARDIOVASCULAR: First and second heart sounds normal. No edema. ABDOMEN: Much less distended. Soft. No tenderness. Liver and spleen not palpable. Bowel sounds are present. PSYCHIATRY: Alert and oriented x3. Mood and affect were normal. INVESTIGATIONS: Potassium 3.2, BUN 26, creatinine 1.16, sodium 144. ASSESSMENT: 1. Acute severe bowel obstruction with prior abdominal surgery with both clinical and radiological improvement. Nasogastric tube tube has been taken out. 2. Acute urinary tract infection from cystitis from Escherichia coli, clinically improving. 3. Acute renal failure, likely prerenal from excessive fluid loss, improving. 4. Metabolic acidosis. 5. Hyperlipidemia. 6. Chronic stable angina from nonobstructive coronary artery disease, 30% lesion. 7. Hypo testosterone. 8. Hyperlipidemia. 9. Anxiety, not otherwise specified. 10.Hypernatremia from free water deficit, improving. PLAN: Overall, patient is doing much better. Will discontinue the IV fluids later tonight. Diet has been advanced per Surgery. Check labs in the morning. Hopefully can be discharged tomorrow. Switch to oral antibiotics. MMODL / IJN: [id number] /
[2018-02-08] MEDS ORDERED: POTASSIUM CHLORIDE ER 20 MEQ TAB.ER PO STA (18:26)
[2018-02-08] MEDS: ALPRAZolam 0.5 MG TAB PO PRN (19:22)
[2018-02-08 20:49] VITALS: PULSE 52
[2018-02-08] MEDS: NITROFURANTOIN MONOHYD/M-CRYST 100 MG CAP PO SCH (21:12)
[2018-02-09 05:21] VITALS: BP 154/76; TEMP 98.2
[2018-02-09 07:12] LABS: Basophils % (A) 0 %; Eosinophils # (A) 0.2 k/uL (0-0.7); Eosinophils % (A) 3 %; HCT 33.3 % (39.0-53.0); HGB 10.9 gm/dL (13.0-17.5); Hypochromasia Slight; Lymphocytes # (A) 1.2 k/uL (1.0-4.8); Lymphocytes % (A) 21 %; MCH 27.8 pg (25.0-35.0); MCHC 32.6 g/dL (31.0-37.0); MCV 85.5 fL (80.0-100.0); Mean Platelet Volume 6.4; Monocytes # (A) 2.8 k/uL (0-1.0); Monocytes % (A) 52 %; Neutrophils # (A) 0.4 k/uL (1.3-7.7); Neutrophils % (A) 7 %; Platelet Count 163 k/uL (150-450); RDW 15.5 % (11.5-15.5); WBC 5.4 k/uL (3.8-10.6)
[2018-02-09 07:24] LABS: Calcium 8.3 mg/dL (8.4-10.2)
[2018-02-09] MEDS: ENOXAPARIN 40 MG/0.4 ML SYRINGE SQ SCH (07:53)
[2018-02-09] MEDS: ALPRAZolam 0.5 MG TAB PO PRN (07:53)
[2018-02-09] MEDS: ATENOLOL 25 MG TAB PO SCH (07:54)
[2018-02-09] MEDS: NITROFURANTOIN MONOHYD/M-CRYST 100 MG CAP PO SCH (07:54)
--- NOTE | 2018-02-09 11:25 | P.PN ---
Subjective Progress Note Date: 02/09/18 Pt seen and examined at bedside. Feeling better. No abdominal pain. Continues to have bowel function. Objective - Vital Signs Vital signs: Vital Signs Temp 98.2 F 02/09/18 05:20 Pulse 52 L 02/09/18 07:05 Resp 16 02/09/18 07:05 BP 154/76 02/09/18 05:20 Pulse Ox 96 02/09/18 05:20 Intake & Output 02/08/18 02/09/18 02/09/18 18:59 06:59 18:59 Weight 77.111 kg Other: Voiding Method Self-Catheterization Self-Catheterization Self-Catheterization # Voids 2 2 # Bowel Movements 1 - Constitutional General appearance: Present: cooperative, no acute distress - Respiratory Details: no difficulty with respiration - Gastrointestinal Gastrointestinal Comment(s): soft, NT, ND, no rebound, no guarding - Labs CBC & Chem 7: 02/09/18 06:34 02/09/18 06:34 Labs: Abnormal Lab Results - Last 24 Hours (Table) 02/09/18 02/09/18 Range/Units 06:34 06:34 RBC 3.90 L (4.30-5.90) m/uL Hgb 10.9 L (13.0-17.5) gm/dL Hct 33.3 L (39.0-53.0) % Neutrophils # 0.4 L (1.3-7.7) k/uL Monocytes # 2.8 H (0-1.0) k/uL Glucose 100 H (74-99) mg/dL Calcium 8.3 L (8.4-10.2) mg/dL Microbiology - Last 24 Hours (Table) 02/04/18 16:38 Blood Culture - Preliminary Blood No Growth after 96 hours Assessment and Plan (1) Small bowel obstruction Narrative/Plan: 72-year-old male with small bowel obstruction, resolving - Advance to soft diet - Continues to improve. Surgically stable for discharge. - Anti-emetics for nausea relief - Due to the history of neobladder and bladder cancer, if any concerns for urinary symptoms, recommend urology consultation Current Visit: Yes Status: Acute Code(s): K56.609 - UNSP INTESTNL OBST, UNSP TO PARTIAL VERSUS COMPLETE OBST SNOMED Code(s): 890270147
== END 2018-02-09 15:50 | disposition home or self-care (01) | DRG 389 ==
LOC: EC 15:46 → 5MS5E 21:54
PROVIDERS: ADMIT Hospitalist; ATTEND Hospitalist
DX: K56.600 Partial intestinal obstruction, unspecified as to cause (principal); N39.0 Urinary tract infection, site not specified; E87.2 Acidosis; N17.9 Acute kidney failure, unspecified; E87.0 Hyperosmolality and hypernatremia; E78.5 Hyperlipidemia, unspecified; I25.118 Atherosclerotic heart disease of native coronary artery with other forms of angina pectoris; E29.1 Testicular hypofunction; E86.9 Volume depletion, unspecified; F41.9 Anxiety disorder, unspecified; Z85.51 Personal history of malignant neoplasm of bladder; Z79.82 Long term (current) use of aspirin; Z79.899 Other long term (current) drug therapy; Z88.8 Allergy status to other drugs, medicaments and biological substances; Z87.891 Personal history of nicotine dependence
CPT/HCPCS: 36415; 74019; 74176; 80048; 80053; 81001; 83605; 83690; 84484; 85025; 85610; 85730; 87040; 87077; 87086; 87186; 93005; 96361; 96374; 96375; 96376; 99285

== ENCOUNTER → 2018-07-28 | Outpatient (CLI) | payer MEDICARE ==
[2018-07-28 12:30] LABS: LDL Cholesterol,Calculated 39.8 mg/dL (0.0-131.0); VLDL Calculation 40.2 mg/dL (5.00-40.00)
== END | disposition home or self-care (01) ==
LOC: LABWHC1 06:53
PROVIDERS: ATTEND Nurse Practitioner Adult Health
DX: E78.2 Mixed hyperlipidemia (principal)
CPT/HCPCS: 36415; 80061; 84450; 84460

== ENCOUNTER → 2018-09-13 | Outpatient (CLI) | payer MEDICARE ==
[2018-09-13 10:24] LABS: Anisocytosis Slight; HCT 38.5 % (39.0-53.0); HGB 12.5 gm/dL (13.0-17.5); Hypochromasia Slight; MCHC 32.4 g/dL (31.0-37.0); MCV 86.5 fL (80.0-100.0); Mean Platelet Volume 6.3; Platelet Count 199 k/uL (150-450); RBC 4.45 m/uL (4.30-5.90); RDW 16.4 % (11.5-15.5); WBC 6.7 k/uL (3.8-10.6)
[2018-09-13 10:33] LABS: Appearance,Urine Cloudy (Clear); Bacteria,Urine Rare /hpf; Bilirubin,Urine Negative (Negative); Blood,Urine Trace (Negative); Color,Urine Light Yellow; Glucose,Urine (UA) Negative (Negative); Ketones,Urine Negative (Negative); Leukocyte Esterase,Urine Large (Negative); Nitrite,Urine Positive (Negative); PH, Urine 6.5 (5.0-8.0); Protein,Urine 1+ (Negative); RBC,Urine 19 /hpf (0-5); Specific Gravity,Urine 1.012 (1.001-1.035); Urobilinogen,Urine <2.0 mg/dL (<2.0); WBC,Urine >182 /hpf (0-5)
[2018-09-13 17:41] LABS: Iron Saturation 69.44 (15.00-50.00)
[2018-09-13 17:44] LABS: Parathyroid Hormone Intact 58.1 pg/mL (14.0-72.0)
[2018-09-13 17:46] LABS: Albumin 4.3 g/dL (3.80-4.90); Albumin/Globulin Ratio 1.65 (1.60-3.17); Anion Gap 8.3 mmol/L (4.00-12.00); Calcium 9.1 mg/dL (8.7-10.3); Carbon Dioxide 20.7 mmol/L (21.6-31.8); Globulin 2.6 g/dL (1.6-3.3); Magnesium 1.8 mg/dL (1.5-2.4); Potassium 4.4 mmol/L (3.5-5.5); Total Bilirubin 0.4 mg/dL (0.3-1.2); Total Protein 6.9 g/dL (6.2-8.2); Uric Acid 6.3 mg/dL (3.7-8.7)
[2018-09-13 17:51] LABS: Vitamin D 25 Hydroxy 23.9 ng/mL (30.0-100.0)
== END | disposition home or self-care (01) ==
LOC: LABWHC1 09:27
PROVIDERS: ATTEND Internal Medicine
DX: N18.3 Chronic kidney disease, stage 3 (moderate) (principal); D63.1 Anemia in chronic kidney disease; N39.0 Urinary tract infection, site not specified; N25.81 Secondary hyperparathyroidism of renal origin; E55.9 Vitamin D deficiency, unspecified; M10.9 Gout, unspecified
CPT/HCPCS: 36415; 80053; 81001; 82306; 82728; 83540; 83550; 83735; 83970; 84100; 84550; 85027

== ENCOUNTER 2018-09-26 09:34 | Day surgery (SDC) | payer MEDICARE ==
[2018-09-25 08:17] VITALS: BMI 25.8
[~2018-09-26 09:34] MED LIST: LACTATED RINGERS 1,000 ML IV SCH
[2018-09-26] MEDS ORDERED: LIDOCAINE 1% 20 ML VIAL (10MG/ML) FOR IV START INTRADERMA ONE (10:21)
[2018-09-26 10:37] VITALS: RESP 16; TEMP 96.9
[2018-09-26] MEDS ORDERED: LIDOCAINE 1% INJ 10MG/ML (20 ML MDV) ONE (10:46)
[2018-09-26] MEDS ORDERED: PROPOFOL 10 MG/ML 20 ML VIAL IV ONE (10:46)
--- NOTE | 2018-09-26 11:20 | P.PCN ---
Date of Procedure: 09/26/18 Procedure(s) Performed: Procedure: Total colonoscopy. Preoperative diagnosis: Positive occult blood in the stools. Postoperative diagnosis: 1. Mild sigmoid diverticulosis with no evidence of acute diverticulitis, strictures, polyps or cancer. 2. Low-grade internal hemorrhoids with no evidence of bleeding at the time of this exam. Preparation: HalfLytely prep. Sedation: Was provided by anesthesia. Brief clinical history: The patient is a 73-year-old male who is scheduled for this evaluation because of finding of blood in his stools on a routine screening exam. No abdominal symptoms or overt bleeding. No upper GI complaints or anemia. His last colonoscopy was in 2010. Procedure: With the patient on his left lateral decubitus position and after informed consent and adequate sedation, the perianal area was inspected and it did not show any fissures or fistulas. There were no masses felt on digital rectal examination. The Olympus CFH 190L video colonoscope was then inserted in the rectum in the usual fashion and advanced to the cecum. There was occasional small diverticular orifices seen scattered in the sigmoid but I saw no evidence of acute diverticulitis or strictures. The mucosa appeared healthy. No polyps or tumors were seen. I retroflexed the endoscope in the rectum before the endoscope was withdrawn. Low-grade internal hemorrhoids were noted with no evidence of bleeding. The patient tolerated the procedure well. Plan: The patient was reassured. Discussed dietary measures and local care for hemorrhoids. In the absence of upper GI complaints or anemia, I did not recommend upper GI workup at this time and this can be kept as a contingency. He will follow up with you as planned. For screening for colon cancer, I recommended repeat exam in 10 years.
[2018-09-26 11:35] VITALS: BP 117/70; PULSE 52
== END 2018-09-26 11:45 | disposition home or self-care (01) ==
LOC: ORWHC2ENDO 09:34
DX: K92.1 Melena (principal); K57.31 Diverticulosis of large intestine without perforation or abscess with bleeding; K64.8 Other hemorrhoids; I25.10 Atherosclerotic heart disease of native coronary artery without angina pectoris; I10 Essential (primary) hypertension; K58.9 Irritable bowel syndrome, unspecified; K86.1 Other chronic pancreatitis; E78.5 Hyperlipidemia, unspecified; Z85.51 Personal history of malignant neoplasm of bladder; Z79.82 Long term (current) use of aspirin; Z79.899 Other long term (current) drug therapy; Z88.8 Allergy status to other drugs, medicaments and biological substances
CPT/HCPCS: 45378; J2001; J2704

== ENCOUNTER → 2019-07-30 | Outpatient (CLI) | payer MEDICARE ==
[2019-07-30 12:25] LABS: Appearance,Urine Clear (Clear); Bilirubin,Urine Negative (Negative); Blood,Urine Negative (Negative); Color,Urine Light Yellow; Glucose,Urine (UA) Negative (Negative); Ketones,Urine Negative (Negative); Leukocyte Esterase,Urine Negative (Negative); Nitrite,Urine Negative (Negative); PH, Urine 6.5 (5.0-8.0); Protein,Urine Negative (Negative); Urobilinogen,Urine <2.0 mg/dL (<2.0)
[2019-07-30 12:31] LABS: HCT 41.1 % (39.0-53.0); HGB 13.4 gm/dL (13.0-17.5); MCH 29.8 pg (25.0-35.0); MCHC 32.7 g/dL (31.0-37.0); MCV 91.1 fL (80.0-100.0); Mean Platelet Volume 6.9; Platelet Count 181 k/uL (150-450); RBC 4.51 m/uL (4.30-5.90); RDW 14.4 % (11.5-15.5); WBC 8.2 k/uL (3.8-10.6)
[2019-07-30 21:49] LABS: % Iron Saturation 20.25 (15.00-50.00); African American GFR (CKD) 45.7 (60.0-200.0); Albumin 4.4 g/dL (3.80-4.90); Calcium 8.8 mg/dL (8.7-10.3); Globulin 2.2 g/dL (1.6-3.3); Magnesium 1.9 mg/dL (1.5-2.4); Non-African American GFR(CKD) 39.4 (60.0-200.0); Phosphorus 3.6 mg/dL (2.4-5.1); Potassium 4.3 mmol/L (3.5-5.5); Total Bilirubin 0.3 mg/dL (0.3-1.2); Total Protein 6.6 g/dL (6.2-8.2); Uric Acid 5.8 mg/dL (3.7-8.7)
[2019-07-30 21:51] LABS: Creatinine,Urine Random 65.9 mg/dL
[2019-07-30 21:59] LABS: Ferritin 288.6 ng/mL (22.0-322.0)
[2019-07-30 22:02] LABS: Total Protein,Urine Random 9.8 mg/dL (0.0-13.5)
[2019-07-30 22:57] LABS: Hepatitis B Surface AB- Quant 3.5 mIU/mL; Hepatitis B Surface Antibody Non-Reactive (Non-Reactive); Hepatitis B Surface Antigen Non-Reactive (Non-Reactive); Hepatitis C IgG Antibody Non-Reactive (Non-Reactive)
[2019-07-31 06:49] LABS: Anti-DNA, DS unit <1.0 IU/mL; DNA Double-Stranded NEGATIVE (NEGATIVE)
[2019-07-31 08:23] LABS: Free Kappa Lt Chain Qnt, Serum 5.61 mg/dL (0.33-1.94)
[2019-07-31 13:58] LABS: C-ANCA <1:20 Titer (<1:20)
== END | disposition home or self-care (01) ==
LOC: LABWHC1 11:07
PROVIDERS: ATTEND Nurse Practitioner Family
DX: D64.9 Anemia, unspecified (principal); N39.0 Urinary tract infection, site not specified; N18.3 Chronic kidney disease, stage 3 (moderate); R80.9 Proteinuria, unspecified; R53.83 Other fatigue; N25.81 Secondary hyperparathyroidism of renal origin; E55.9 Vitamin D deficiency, unspecified; M10.9 Gout, unspecified
CPT/HCPCS: 36415; 80053; 81003; 82306; 82570; 82728; 83516; 83540; 83550; 83735; 83883; 83970; 84100; 84156; 84166; 84550; 85027; 86038; 86160; 86162; 86225; 86255; 86334; 86706; 86803; 87340

== ENCOUNTER → 2019-11-05 | Outpatient (CLI) | payer MEDICARE ==
[2019-11-05 09:24] LABS: Appearance,Urine Clear (Clear); Bilirubin,Urine Negative (Negative); Blood,Urine Negative (Negative); Color,Urine Light Yellow; Glucose,Urine (UA) Negative (Negative); Ketones,Urine Negative (Negative); Leukocyte Esterase,Urine Negative (Negative); Nitrite,Urine Negative (Negative); PH, Urine 6.5 (5.0-8.0); Protein,Urine Negative (Negative); Specific Gravity,Urine 1.011 (1.001-1.035); Urobilinogen,Urine <2.0 mg/dL (<2.0)
[2019-11-05 09:35] LABS: HCT 44.2 % (39.0-53.0); HGB 14.4 gm/dL (13.0-17.5); MCH 29.9 pg (25.0-35.0); MCHC 32.6 g/dL (31.0-37.0); MCV 91.7 fL (80.0-100.0); Mean Platelet Volume 7.1; Platelet Count 172 k/uL (150-450); RBC 4.82 m/uL (4.30-5.90); RDW 13.7 % (11.5-15.5); WBC 8.3 k/uL (3.8-10.6)
[2019-11-05 16:01] LABS: % Iron Saturation 13.76 (15.00-50.00); African American GFR (CKD) 63.2 (60.0-200.0); Albumin 4.5 g/dL (3.80-4.90); Albumin/Globulin Ratio 1.88 (1.60-3.17); Anion Gap 8.8 mmol/L (4.00-12.00); BUN/Creat Ratio 29.23 Ratio (12.00-20.00); Calcium 9.2 mg/dL (8.7-10.3); Carbon Dioxide 20.2 mmol/L (21.6-31.8); Globulin 2.4 g/dL (1.6-3.3); Magnesium 2.1 mg/dL (1.5-2.4); Non-African American GFR(CKD) 54.5 (60.0-200.0); Phosphorus 3.6 mg/dL (2.4-5.1); Potassium 4.7 mmol/L (3.5-5.5); Total Bilirubin 0.4 mg/dL (0.3-1.2); Total Protein 6.9 g/dL (6.2-8.2); Uric Acid 6.6 mg/dL (3.7-8.7)
[2019-11-05 16:09] LABS: Ferritin 128.7 ng/mL (22.0-322.0)
== END | disposition home or self-care (01) ==
LOC: LABWHC1 08:26
PROVIDERS: ATTEND Nurse Practitioner Family
DX: N18.3 Chronic kidney disease, stage 3 (moderate) (principal); D63.1 Anemia in chronic kidney disease; N39.0 Urinary tract infection, site not specified; N25.81 Secondary hyperparathyroidism of renal origin; M10.9 Gout, unspecified; E55.9 Vitamin D deficiency, unspecified
CPT/HCPCS: 36415; 80053; 81003; 82306; 82728; 83540; 83550; 83735; 83970; 84100; 84550; 85027

== ENCOUNTER → 2020-01-02 | Outpatient (CLI) | payer MEDICARE ==
--- NOTE | 2020-01-02 14:03 | XR ---
EXAMINATION TYPE: XR chest 2V DATE OF EXAM: 01/02/2020 COMPARISON: 07/31/2010 HISTORY: Shortness of breath TECHNIQUE: Frontal and lateral views of the chest are obtained. FINDINGS: Scattered senescent parenchymal changes noted. Hyperinflation compatible with COPD. No evidence for infiltrate. No evidence for atelectasis. Heart size is stable. Mediastinal structures are stable and grossly unremarkable. No evidence for hilar prominence. Degenerative changes dorsal spine. IMPRESSION: 1. No evidence for acute pulmonary disease.
== END | disposition home or self-care (01) ==
LOC: RADXRMAIN 10:11
PROVIDERS: ATTEND Otolaryngology
DX: R05 Cough (principal); R06.02 Shortness of breath; I20.9 Angina pectoris, unspecified
CPT/HCPCS: 71046; 93005

== ENCOUNTER → 2020-02-28 | Outpatient (CLI) | payer MEDICARE ==
[2020-02-28 08:00] LABS: HCT 42.5 % (39.0-53.0); HGB 13.7 gm/dL (13.0-17.5); MCHC 32.1 g/dL (31.0-37.0); MCV 90.2 fL (80.0-100.0); Mean Platelet Volume 6.9; Platelet Count 189 k/uL (150-450); RBC 4.71 m/uL (4.30-5.90); RDW 14.4 % (11.5-15.5); WBC 6.3 k/uL (3.8-10.6)
[2020-02-28 08:06] LABS: Appearance,Urine Turbid (Clear); Bacteria,Urine Few /hpf; Bilirubin,Urine Negative (Negative); Blood,Urine Negative (Negative); Color,Urine Light Yellow; Glucose,Urine (UA) Negative (Negative); Ketones,Urine Negative (Negative); Leukocyte Esterase,Urine Negative (Negative); Mucus,Urine Rare /hpf; Nitrite,Urine Negative (Negative); Protein,Urine Trace (Negative); RBC,Urine 10 /hpf (0-5); Specific Gravity,Urine 1.003 (1.001-1.035); Squamous Epithelial Cell,Urine <1 /hpf (0-4); Urobilinogen,Urine <2.0 mg/dL (<2.0); WBC,Urine 77 /hpf (0-5)
[2020-02-28 12:25] LABS: Ferritin 85.4 ng/mL (22.0-322.0)
[2020-02-28 12:58] LABS: % Iron Saturation 23.68 (15.00-50.00); African American GFR (CKD) 63.2 (60.0-200.0); Albumin 4.3 g/dL (3.80-4.90); Albumin/Globulin Ratio 1.79 (1.60-3.17); BUN/Creat Ratio 25.38 Ratio (12.00-20.00); Calcium 9.3 mg/dL (8.7-10.3); Globulin 2.4 g/dL (1.6-3.3); Non-African American GFR(CKD) 54.5 (60.0-200.0); Phosphorus 3.5 mg/dL (2.4-5.1); Potassium 4.5 mmol/L (3.5-5.5); Total Bilirubin 0.5 mg/dL (0.3-1.2); Total Protein 6.7 g/dL (6.2-8.2)
== END | disposition home or self-care (01) ==
LOC: LABWHC1 07:13
PROVIDERS: ATTEND Internal Medicine
DX: N18.3 Chronic kidney disease, stage 3 (moderate) (principal); D63.1 Anemia in chronic kidney disease; N39.0 Urinary tract infection, site not specified; N25.81 Secondary hyperparathyroidism of renal origin; E55.9 Vitamin D deficiency, unspecified; M10.9 Gout, unspecified
CPT/HCPCS: 36415; 80053; 81001; 82306; 82728; 83540; 83550; 83735; 83970; 84100; 84550; 85027

== ENCOUNTER 2020-03-23 17:43 | Inpatient (IN) | payer MEDICARE ==
[2020-03-23] MEDS ORDERED: SODIUM CHLORIDE 0.9% 1,000 ML IV STA (18:17)
[2020-03-23] MEDS ORDERED: HYDROmorphone 1 MG/ML 1 ML SYRINGE IVP STA ×2 (18:46→21:18)
[2020-03-23] MEDS ORDERED: ONDANSETRON 4 MG/2 ML VIAL IVP STA (18:46)
[2020-03-23 18:50] LABS: Albumin 4.7 g/dL (3.5-5.0); Calcium 9.3 mg/dL (8.4-10.2); HCT 48.9 % (39.0-53.0); HGB 15.7 gm/dL (13.0-17.5); MCH 28.6 pg (25.0-35.0); MCHC 32.1 g/dL (31.0-37.0); MCV 89.1 fL (80.0-100.0); Mean Platelet Volume 7.6; Platelet Count 214 k/uL (150-450); RBC 5.49 m/uL (4.30-5.90); RDW 14.3 % (11.5-15.5); Total Bilirubin 0.9 mg/dL (0.2-1.3); Total Protein 8.3 g/dL (6.3-8.2); WBC 14.9 k/uL (3.8-10.6)
[2020-03-23 18:51] LABS: Potassium 5.4 mmol/L (3.5-5.1)
[2020-03-23 19:24] LABS: Lymphocytes # (M) 0.89 k/uL (1.0-4.8); Monocytes # (M) 0.45 k/uL (0-1.0); Neutrophils # (M) 13.56 k/uL (1.3-7.7); Neutrophils % (M) 91 %; Nucleated Red Blood Cells 0 /100 WBC (0-0); Total Cells Counted 100
[2020-03-23] MEDS ORDERED: methylPREDNISolone SOD SUCCI 125 MG/2 ML VIAL IV STA (19:32)
[2020-03-23] MEDS ORDERED: FAMOTIDINE 20 MG/2 ML VIAL IV STA (19:32)
[2020-03-23] MEDS ORDERED: diphenhydrAMINE 50 MG/ML 1 ML VIAL IVP STA (19:32)
[2020-03-23] MEDS: SODIUM CHLORIDE 0.9% 1,000 ML IV SCH (19:44)
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
--- NOTE | 2020-03-23 21:03 | CT ---
EXAMINATION TYPE: CT abdomen pelvis w con DATE OF EXAM: 03/23/2020 COMPARISON: 02/04/2018 HISTORY: Abdominal pain. CT DLP: 1116.1 mGycm Automated exposure control for dose reduction was used. CONTRAST: Performed with IV Contrast, patient injected with 80 mL of Isovue 300. There is some patchy atelectasis at the lung bases. There is no pleural effusion. Heart is normal. There are large calcified gallstones. Stomach is intact. Spleen appears normal. There are numerous pa ncreatic calcifications consistent with chronic pancreatitis. Liver shows no focal defect. The bile d ucts are not dilated. There is no adrenal mass. Kidneys show satisfactory contrast opacification. There is no hydronephrosi s. Ureters are not dilated. There is no retroperitoneal adenopathy. There is some deformity of the ur inary bladder that could relate to surgery and is unchanged. There is no inguinal hernia. There is pr evious bowel surgery. There are some dilated fluid-filled loops of small bowel in the mid abdomen. Th ere are sigmoid diverticula. There is no sign of diverticulitis. Lumbar vertebra have normal alignment. Disc spaces are fairly normal. There is no compression fractur e. There is mild spurring of the endplates. Bony pelvis is intact. IMPRESSION: Dilated small bowel with fluid levels suggestive of partial mechanical obstruction similar to old exa m. There is previous surgery at the distal ileum. There is some patchy scarring and atelectasis at th e lung bases unchanged.
[2020-03-23] MEDS ORDERED: PIPERACILLIN-TAZOBACTAM 4.5 GM in SODIUM CHLORIDE 0.9% 100 ML IVPB STA (21:14)
[2020-03-23] MEDS ORDERED: ONDANSETRON 4 MG/2 ML VIAL IVP PRN (21:29)
[2020-03-23] MEDS ORDERED: HYDROmorphone 0.5 MG/0.5 ML SYRINGE IVP PRN (21:29)
[2020-03-23] MEDS ORDERED: NALOXONE 0.4 MG/ML 1 ML VIAL IV PRN (21:29)
[2020-03-23 21:52] LABS: Appearance,Urine Cloudy (Clear); Bilirubin,Urine Negative (Negative); Blood,Urine Negative (Negative); Color,Urine Yellow; Glucose,Urine (UA) Negative (Negative); Ketones,Urine Negative (Negative); Leukocyte Esterase,Urine Negative (Negative); Mucus,Urine Rare /hpf; Nitrite,Urine Negative (Negative); Protein,Urine Trace (Negative); RBC,Urine 10 /hpf (0-5); Specific Gravity,Urine 1.019 (1.001-1.035); Squamous Epithelial Cell,Urine 1 /hpf (0-4); Urobilinogen,Urine <2.0 mg/dL (<2.0); WBC,Urine 76 /hpf (0-5)
[2020-03-23] MEDS ORDERED: SODIUM CHLORIDE 0.9% 1,000 ML IV ONE (22:29)
[2020-03-24] MEDS: HYDROmorphone 1 MG/ML 1 ML SYRINGE IVP PRN ×3 (02:44→13:39)
[2020-03-24] MEDS: SODIUM CHLORIDE 0.9% 1,000 ML IV SCH ×2 (02:47→16:25)
[2020-03-24] MEDS: PANTOPRAZOLE 40 MG/10 ML VIAL IV SCH (09:21)
[2020-03-24 09:35] LABS: Basophils % (A) 0 %; Eosinophils % (A) 0 %; HCT 47.8 % (39.0-53.0); HGB 14.2 gm/dL (13.0-17.5); Hypochromasia Moderate; Lymphocytes # (A) 0.3 k/uL (1.0-4.8); Lymphocytes % (A) 3 %; MCH 27.8 pg (25.0-35.0); MCHC 29.8 g/dL (31.0-37.0); MCV 93.3 fL (80.0-100.0); Mean Platelet Volume 7.8; Monocytes % (A) 72 %; Neutrophils # (A) 2.3 k/uL (1.3-7.7); Neutrophils % (A) 21 %; Platelet Count 210 k/uL (150-450); RBC 5.12 m/uL (4.30-5.90); RDW 14.5 % (11.5-15.5)
[2020-03-24 09:42] LABS: Calcium 8.2 mg/dL (8.4-10.2); Potassium 4.4 mmol/L (3.5-5.1)
[2020-03-24] MEDS ORDERED: SODIUM CHLORIDE 0.9% 1,000 ML IV ONE (11:18)
[2020-03-24] MEDS: ENOXAPARIN 40 MG/0.4 ML SYRINGE SQ SCH (13:12)
--- NOTE | 2020-03-24 14:46 | P.GSHP ---
History of Present Illness H&P Date: 03/24/20 CHIEF COMPLAINT: Abdominal pain and distention HISTORY OF PRESENT ILLNESS: This is a 74-year-old male with a known history of bladder cancer and had neobladder surgery performed in 2007. He has a prior history of a small bowel obstruction and chronic pancreatitis. He presented to the emergency room with complaints of abdominal pain and distention that started yesterday. Patient reports an episode of vomiting yesterday. He was able to have a small bowel movement today. He had NG do tube placed in the ER for his small bowel obstruction. He denies any fever, chills or sweats. PAST MEDICAL HISTORY: See list. PAST SURGICAL HISTORY: See list. MEDICATIONS: See list. ALLERGIES: See list. SOCIAL HISTORY: No illicit drug use. REVIEW OF SYSTEMS: CONSTITUTIONAL: Denies fever or chills. HEENT: Denies blurred vision, vision changes, or eye pain. Denies hemoptysis CARDIOVASCULAR: Denies chest pain or pressure. RESPIRATORY: No shortness of breath. GASTROINTESTINAL: See HPI for pertinent findings HEMATOLOGIC: Denies bleeding disorders. GENITOURINARY: Denies any blood in urine or increased urinary frequency. SKIN: Denies pruitis. Denies rash. PHYSICAL EXAM: VITAL SIGNS: Reviewed GENERAL: Well-developed in no acute distress. HEENT: No sclera icterus. Extraocular movements grossly intact. Moist buccal mucosa. Head is atraumatic, normocephalic. No nasal drainage. ABDOMEN: Soft. Distended. Diffuse tenderness with palpation NEUROLOGIC: Alert and oriented. Cranial nerves II through XII grossly intact. LABORATORY DATA: WBC 14.9 down to 11.0 potassium 5.4 down to 4.4 creatinine 1.44 lactic acid 5.3 down to 3.2 IMAGING: Computed tomography scan of the abdomen reports states dilated small bowel with fluid level suggestive of partial mechanical obstruction similar to old exam. There is previous surgery at the distal ileum. There is some patchy scarring and atelectasis at the lung bases unchanged. ASSESSMENT: 1. Small bowel obstruction 2. History of bladder cancer with neobladder surgery performed in 2007. Has Chahal catheter 3. Prior history of a small bowel obstruction treated conservatively PLAN: -Recommend to treat conservatively -Continue NG tube for decompression -Keep patient nothing by mouth -Patient given a fluid bolus this morning for elevated lactic acid -Continue IV fluids -Consult medicine for medical management -Continue GI and DVT prophylaxis Physician Car Salesman note has been reviewed by physician. Signing provider agrees with the documented findings, assessment, and plan of care. Past Medical History Past Medical History: Coronary Artery Disease (CAD), Cancer, Chest Pain / Angina , Hyperlipidemia Additional Past Medical History / Comment(s): Bladder CA 2007-has neobladder, colon polyps, pancreatitis, IBS, blood in stool History of Any Multi-Drug Resistant Organisms: None Reported Past Surgical History: Heart Catheterization Additional Past Surgical History / Comment(s): dillan bladder-due to cancer, sinus surgery, colonoscopy, bhupinder cataracts Past Anesthesia/Blood Transfusion Reactions: No Reported Reaction Past Psychological History: Anxiety Smoking Status: Former smoker Past Alcohol Use History: None Reported Additional Past Alcohol Use History / Comment(s): quit smoking 40 yrs ago, smoked for approx 30 yrs, 1 PPD Past Drug Use History: None Reported - Past Family History Mother Family Medical History: Cancer Medications and Allergies Home Medications Medication Instructions Recorded Confirmed Type Aspirin EC [Ecotrin Low Dose] 81 mg PO DAILY 07/27/16 03/23/20 History Ferrous Sulfate [Feosol] 325 mg PO DAILY 09/25/18 03/23/20 History Fexofenadine/Pseudoephedrine 1 tab PO DAILY PRN 09/25/18 03/23/20 History [Rebeca-D 24 Hour Tablet] Simvastatin 40 mg PO DAILY 09/25/18 03/23/20 History Sodium Bicarbonate Tab 650 mg PO AC-BID@1200,1800 09/25/18 03/23/20 History Vit C/E/Zn/Coppr/Lutein/Zeaxan 1 cap PO BID 09/25/18 03/23/20 History [Preservision Areds 2 Softgel] ALPRAZolam [Xanax] 0.5 mg PO BID 03/23/20 03/23/20 History Ergocalciferol [Vitamin D2] 50,000 unit PO Q14D 03/23/20 03/23/20 History Sildenafil Citrate 100 mg PO DAILY PRN 03/23/20 03/23/20 History Sodium Bicarbonate Tab 1,300 mg PO AC-BRKFST 03/23/20 03/23/20 History Allergies Allergy/AdvReac Type Severity Reaction Status Date / Time iodine AdvReac sneezing Verified 03/23/20 17:54 Iodine and Iodide Containing AdvReac sneezing Verified 03/23/20 17:54 Produc Surgical - Exam Vital Signs Temp Pulse Resp BP Pulse Ox 98.2 F 78 18 138/85 97 03/23/20 17:55 03/23/20 17:55 03/23/20 17:55 03/23/20 17:55 03/23/20 17:55 Results - Labs 03/24/20 05:40 03/24/20 05:40 Abnormal Lab Results - Last 24 Hours (Table) 03/23/20 03/23/20 03/23/20 Range/Units 18:33 18:33 18:33 WBC 14.9 H (3.8-10.6) k/uL MCHC (31.0-37.0) g/dL Neutrophils # (Manual) 13.56 H (1.3-7.7) k/uL Lymphocytes # (1.0-4.8) k/uL Lymphocytes # (Manual) 0.89 L (1.0-4.8) k/uL Monocytes # (0-1.0) k/uL Sodium 136 L (137-145) mmol/L Potassium 5.4 H (3.5-5.1) mmol/L Chloride 109 H (98-107) mmol/L Carbon Dioxide 14 L (22-30) mmol/L BUN 38 H (9-20) mg/dL Creatinine 1.44 H (0.66-1.25) mg/dL Glucose 151 H (74-99) mg/dL Plasma Lactic Acid Yuan 2.1 H* (0.7-2.0) mmol/L Calcium (8.4-10.2) mg/dL Total Protein 8.3 H (6.3-8.2) g/dL Urine Protein (Negative) Urine RBC (0-5) /hpf Urine WBC (0-5) /hpf Urine Mucus (None) /hpf 03/23/20 03/23/20 03/24/20 Range/Units 21:32 21:34 00:28 WBC (3.8-10.6) k/uL MCHC (31.0-37.0) g/dL Neutrophils # (Manual) (1.3-7.7) k/uL Lymphocytes # (1.0-4.8) k/uL Lymphocytes # (Manual) (1.0-4.8) k/uL Monocytes # (0-1.0) k/uL Sodium (137-145) mmol/L Potassium (3.5-5.1) mmol/L Chloride (98-107) mmol/L Carbon Dioxide (22-30) mmol/L BUN (9-20) mg/dL Creatinine (0.66-1.25) mg/dL Glucose (74-99) mg/dL Plasma Lactic Acid Yuan 3.6 H* 4.0 H* (0.7-2.0) mmol/L Calcium (8.4-10.2) mg/dL Total Protein (6.3-8.2) g/dL Urine Protein Trace H (Negative) Urine RBC 10 H (0-5) /hpf Urine WBC 76 H (0-5) /hpf Urine Mucus Rare H (None) /hpf 03/24/20 03/24/20 03/24/20 Range/Units 02:50 05:40 05:40 WBC 11.0 H (3.8-10.6) k/uL MCHC 29.8 L (31.0-37.0) g/dL Neutrophils # (Manual) (1.3-7.7) k/uL Lymphocytes # 0.3 L (1.0-4.8) k/uL Lymphocytes # (Manual) (1.0-4.8) k/uL Monocytes # 8.0 H (0-1.0) k/uL Sodium (137-145) mmol/L Potassium (3.5-5.1) mmol/L Chloride (98-107) mmol/L Carbon Dioxide (22-30) mmol/L BUN (9-20) mg/dL Creatinine (0.66-1.25) mg/dL Glucose (74-99) mg/dL Plasma Lactic Acid Yuan 3.3 H* 3.0 H* (0.7-2.0) mmol/L Calcium (8.4-10.2) mg/dL Total Protein (6.3-8.2) g/dL Urine Protein (Negative) Urine RBC (0-5) /hpf Urine WBC (0-5) /hpf Urine Mucus (None) /hpf 03/24/20 03/24/20 03/24/20 Range/Units 05:40 08:17 10:56 WBC (3.8-10.6) k/uL MCHC (31.0-37.0) g/dL Neutrophils # (Manual) (1.3-7.7) k/uL Lymphocytes # (1.0-4.8) k/uL Lymphocytes # (Manual) (1.0-4.8) k/uL Monocytes # (0-1.0) k/uL Sodium (137-145) mmol/L Potassium (3.5-5.1) mmol/L Chloride 109 H (98-107) mmol/L Carbon Dioxide 17 L (22-30) mmol/L BUN 35 H (9-20) mg/dL Creatinine 1.44 H (0.66-1.25) mg/dL Glucose 179 H (74-99) mg/dL Plasma Lactic Acid Yuan 5.3 H* 3.2 H* (0.7-2.0) mmol/L Calcium 8.2 L (8.4-10.2) mg/dL Total Protein (6.3-8.2) g/dL Urine Protein (Negative) Urine RBC (0-5) /hpf Urine WBC (0-5) /hpf Urine Mucus (None) /hpf Microbiology - Last 24 Hours (Table) 03/23/20 21:34 Urine Culture - Preliminary Urine,Clean Catch Diabetes panel 03/23/20 03/24/20 Range/Units 18:33 05:40 Sodium 136 L 140 (137-145) mmol/L Potassium 5.4 H 4.4 (3.5-5.1) mmol/L Chloride 109 H 109 H (98-107) mmol/L Carbon Dioxide 14 L 17 L (22-30) mmol/L BUN 38 H 35 H (9-20) mg/dL Creatinine 1.44 H 1.44 H (0.66-1.25) mg/dL Glucose 151 H 179 H (74-99) mg/dL Calcium 9.3 8.2 L (8.4-10.2) mg/dL AST 49 (17-59) U/L ALT 35 (4-49) U/L Alkaline Phosphatase 89 (38-126) U/L Total Protein 8.3 H (6.3-8.2) g/dL Albumin 4.7 (3.5-5.0) g/dL Calcium panel 03/23/20 03/24/20 Range/Units 18:33 05:40 Calcium 9.3 8.2 L (8.4-10.2) mg/dL Albumin 4.7 (3.5-5.0) g/dL Pituitary panel 03/23/20 03/24/20 Range/Units 18:33 05:40 Sodium 136 L 140 (137-145) mmol/L Potassium 5.4 H 4.4 (3.5-5.1) mmol/L Chloride 109 H 109 H (98-107) mmol/L Carbon Dioxide 14 L 17 L (22-30) mmol/L BUN 38 H 35 H (9-20) mg/dL Creatinine 1.44 H 1.44 H (0.66-1.25) mg/dL Glucose 151 H 179 H (74-99) mg/dL Calcium 9.3 8.2 L (8.4-10.2) mg/dL Adrenal panel 03/23/20 03/24/20 Range/Units 18:33 05:40 Sodium 136 L 140 (137-145) mmol/L Potassium 5.4 H 4.4 (3.5-5.1) mmol/L Chloride 109 H 109 H (98-107) mmol/L Carbon Dioxide 14 L 17 L (22-30) mmol/L BUN 38 H 35 H (9-20) mg/dL Creatinine 1.44 H 1.44 H (0.66-1.25) mg/dL Glucose 151 H 179 H (74-99) mg/dL Calcium 9.3 8.2 L (8.4-10.2) mg/dL Total Bilirubin 0.9 (0.2-1.3) mg/dL AST 49 (17-59) U/L ALT 35 (4-49) U/L Alkaline Phosphatase 89 (38-126) U/L Total Protein 8.3 H (6.3-8.2) g/dL Albumin 4.7 (3.5-5.0) g/dL
[2020-03-24] MEDS: PIPERACILLIN-TAZOBACTAM 3.375 GM in SODIUM CHLORIDE 0.9% 100 ML IVPB SCH (16:26)
--- NOTE | 2020-03-24 23:19 | P.CONS ---
History of Present Illness - Reason for Consult Consult date: 03/24/20 Medical management Requesting physician: Charly Gresham - Chief Complaint Abdominal pain - History of Present Illness Consultation: This is a pleasant 74-year-old patient who follows with Dr. Holland. Chronic stable medical conditions include hyperlipidemia, chronic stable angina from nonobstructive coronary artery disease with 30% lesion per cardiac catheterization, hypo-testosterone , hyperlipidemia, anxiety. Patient was here in 2079 with a small bowel obstruction had a NG tube placed. Patient bladder cancer 2007 and has a neobladder. Patient yesterday started out with increasing abdominal distention. Had a bowel movement yesterday morning. One episode of vomiting. Had a baseline patient catheterizes himself about 7 times a day. Found to have a small bowel obstruction the ER. NG tube was placed. Good output. Abdomen feeling a bit better this morning. No fever no chills Review of systems: GEN.: Tired EYES: None HEENT: None NECK: None RESPIRATORY: None CARDIOVASCULAR: None GASTROINTESTINAL: As above GENITOURINARY: None MUSCULOSKELETAL: None LYMPHATICS: None HEMATOLOGICAL: None PSYCHIATRY: None NEUROLOGICAL: None Past medical history to include: Hyperlipidemia, chronic stable angina from nonobstructive coronary artery disease 30% lesion for cardiac catheterization, hypo-testosterone , hyperlipidemia, anxiety Social history: Lives alone. Retired. No history of smoking or alcohol. Physical examination: VITAL SIGNS: 98.1, 64, 16, 139/79, 95% room air GENERAL: [BMI 25.8, laying in bed, awake. EYES: Pupils equal. Conjunctiva normal. HEENT: External appearance of nose and ears normal, oral cavity mucous membranes, with NG tube to suction. NECK: JVD not raised; masses not palpable. HEART: First and second heart sounds are normal; no edema. LUNGS: Respiratory rate normal; clear to auscultation. ABDOMEN: Soft, some distention, minimal tenderness, hyperactive bowel sounds, liver spleen not palpable, no masses palpable. PSYCH: Alert and oriented x3; mood and affect normal. NEUROLOGICAL: Cranial nerves grossly intact; no facial asymmetry, power and sensation grossly intact. LYMPHATICS: No lymph nodes palpable in the axilla and neck INVESTIGATIONS, reviewed in the clinical context: White count 11 hemoglobin 14.2 potassium 4.4 bun 35 creatinine 1.44 Lactic acid 3.0 Patient's creatinine was 1.4 on 02/07/2018 Assessment: -Recurrent acute small bowel obstruction, now has NG tube in place --Hyperlipidemia -Chronic stable angina with nonobstructive coronary artery disease with 30% lesion per cardiac catheterization -Hypo-testosterone -Hyperlipidemia -Chronic kidney disease stage III likely nephrosclerosis -Lactic acidosis type II from volume loss. No clinical evidence of sepsis. Plan: Care was discussed with the patient. NG tube to continue. Follow electrolytes. Add Lovenox for DVT prophylaxis. Care was discussed with the patient. Questions answered Thank you Dr. Gresham. Past Medical History Past Medical History: Coronary Artery Disease (CAD), Cancer, Chest Pain / Angina, Hyperlipidemia Additional Past Medical History / Comment(s): Bladder CA 2007-has neobladder, colon polyps, pancreatitis, IBS, blood in stool History of Any Multi-Drug Resistant Organisms: None Reported Past Surgical History: Heart Catheterization Additional Past Surgical History / Comment(s): dillan bladder-due to cancer, sinus surgery, colonoscopy, bhupinder cataracts Past Anesthesia/Blood Transfusion Reactions: No Reported Reaction Past Psychological History: Anxiety Smoking Status: Former smoker Past Alcohol Use History: None Reported Additional Past Alcohol Use History / Comment(s): quit smoking 40 yrs ago, smoked for approx 30 yrs, 1 PPD Past Drug Use History: None Reported - Past Family History Mother Family Medical History: Cancer Medications and Allergies Home Medications Medication Instructions Recorded Confirmed Type Aspirin EC [Ecotrin Low Dose] 81 mg PO DAILY 07/27/16 03/23/20 History Ferrous Sulfate [Feosol] 325 mg PO DAILY 09/25/18 03/23/20 History Fexofenadine/Pseudoephedrine 1 tab PO DAILY PRN 09/25/18 03/23/20 History [Rebeca-D 24 Hour Tablet] Simvastatin 40 mg PO DAILY 09/25/18 03/23/20 History Sodium Bicarbonate Tab 650 mg PO AC-BID@1200,1800 09/25/18 03/23/20 History Vit C/E/Zn/Coppr/Lutein/Zeaxan 1 cap PO BID 09/25/18 03/23/20 History [Preservision Areds 2 Softgel] ALPRAZolam [Xanax] 0.5 mg PO BID 03/23/20 03/23/20 History Ergocalciferol [Vitamin D2] 50,000 unit PO Q14D 03/23/20 03/23/20 History Sildenafil Citrate 100 mg PO DAILY PRN 03/23/20 03/23/20 History Sodium Bicarbonate Tab 1,300 mg PO AC-BRKFST 03/23/20 03/23/20 History Allergies Allergy/AdvReac Type Severity Reaction Status Date / Time iodine AdvReac sneezing Verified 03/23/20 17:54 Iodine and Iodide Containing AdvReac sneezing Verified 03/23/20 17:54 Produc Physical Exam Vitals: Vital Signs Temp Pulse Pulse Resp BP BP Pulse Ox 03/24/20 05:00 98.1 F 64 16 139/79 95 03/23/20 23:17 98.1 F 68 16 148/78 97 03/23/20 20:24 69 18 149/83 97 03/23/20 17:55 98.2 F 78 18 138/85 97 Intake and Output 03/23/20 03/24/20 03/24/20 22:59 06:59 14:59 Output Total 550 Balance -550 Output: Urine 550 Uretheral (Chahal) 550 Other: Voiding Method Indwelling Catheter # Voids 1 # Bowel Movements 0 Weight 74.843 kg Results CBC & Chem 7: 03/24/20 05:40 03/24/20 05:40 Labs: Abnormal Lab Results - Last 24 Hours (Table) 03/23/20 03/23/20 03/23/20 Range/Units 18:33 18:33 18:33 WBC 14.9 H (3.8-10.6) k/uL MCHC (31.0-37.0) g/dL Neutrophils # (Manual) 13.56 H (1.3-7.7) k/uL Lymphocytes # (1.0-4.8) k/uL Lymphocytes # (Manual) 0.89 L (1.0-4.8) k/uL Monocytes # (0-1.0) k/uL Sodium 136 L (137-145) mmol/L Potassium 5.4 H (3.5-5.1) mmol/L Chloride 109 H (98-107) mmol/L Carbon Dioxide 14 L (22-30) mmol/L BUN 38 H (9-20) mg/dL Creatinine 1.44 H (0.66-1.25) mg/dL Glucose 151 H (74-99) mg/dL Plasma Lactic Acid Yuna 2.1 H* (0.7-2.0) mmol/L Calcium (8.4-10.2) mg/dL Total Protein 8.3 H (6.3-8.2) g/dL Urine Protein (Negative) Urine RBC (0-5) /hpf Urine WBC (0-5) /hpf Urine Mucus (None) /hpf 03/23/20 03/23/20 03/24/20 Range/Units 21:32 21:34 00:28 WBC (3.8-10.6) k/uL MCHC (31.0-37.0) g/dL Neutrophils # (Manual) (1.3-7.7) k/uL Lymphocytes # (1.0-4.8) k/uL Lymphocytes # (Manual) (1.0-4.8) k/uL Monocytes # (0-1.0) k/uL Sodium (137-145) mmol/L Potassium (3.5-5.1) mmol/L Chloride (98-107) mmol/L Carbon Dioxide (22-30) mmol/L BUN (9-20) mg/dL Creatinine (0.66-1.25) mg/dL Glucose (74-99) mg/dL Plasma Lactic Acid Yuan 3.6 H* 4.0 H* (0.7-2.0) mmol/L Calcium (8.4-10.2) mg/dL Total Protein (6.3-8.2) g/dL Urine Protein Trace H (Negative) Urine RBC 10 H (0-5) /hpf Urine WBC 76 H (0-5) /hpf Urine Mucus Rare H (None) /hpf 03/24/20 03/24/20 03/24/20 Range/Units 02:50 05:40 05:40 WBC 11.0 H (3.8-10.6) k/uL MCHC 29.8 L (31.0-37.0) g/dL Neutrophils # (Manual) (1.3-7.7) k/uL Lymphocytes # 0.3 L (1.0-4.8) k/uL Lymphocytes # (Manual) (1.0-4.8) k/uL Monocytes # 8.0 H (0-1.0) k/uL Sodium (137-145) mmol/L Potassium (3.5-5.1) mmol/L Chloride (98-107) mmol/L Carbon Dioxide (22-30) mmol/L BUN (9-20) mg/dL Creatinine (0.66-1.25) mg/dL Glucose (74-99) mg/dL Plasma Lactic Acid Yuan 3.3 H* 3.0 H* (0.7-2.0) mmol/L Calcium (8.4-10.2) mg/dL Total Protein (6.3-8.2) g/dL Urine Protein (Negative) Urine RBC (0-5) /hpf Urine WBC (0-5) /hpf Urine Mucus (None) /hpf 03/24/20 03/24/20 Range/Units 05:40 08:17 WBC (3.8-10.6) k/uL MCHC (31.0-37.0) g/dL Neutrophils # (Manual) (1.3-7.7) k/uL Lymphocytes # (1.0-4.8) k/uL Lymphocytes # (Manual) (1.0-4.8) k/uL Monocytes # (0-1.0) k/uL Sodium (137-145) mmol/L Potassium (3.5-5.1) mmol/L Chloride 109 H (98-107) mmol/L Carbon Dioxide 17 L (22-30) mmol/L BUN 35 H (9-20) mg/dL Creatinine 1.44 H (0.66-1.25) mg/dL Glucose 179 H (74-99) mg/dL Plasma Lactic Acid Yuan 5.3 H* (0.7-2.0) mmol/L Calcium 8.2 L (8.4-10.2) mg/dL Total Protein (6.3-8.2) g/dL Urine Protein (Negative) Urine RBC (0-5) /hpf Urine WBC (0-5) /hpf Urine Mucus (None) /hpf Microbiology - Last 24 Hours (Table) 03/23/20 21:34 Urine Culture - Preliminary Urine,Clean Catch
[2020-03-25] MEDS: PIPERACILLIN-TAZOBACTAM 3.375 GM in SODIUM CHLORIDE 0.9% 100 ML IVPB SCH ×3 (00:22→15:37)
[2020-03-25] MEDS: SODIUM CHLORIDE 0.9% 1,000 ML IV SCH ×3 (00:22→21:36)
[2020-03-25 04:45] LABS: HCT 42.2 % (39.0-53.0); HGB 13.1 gm/dL (13.0-17.5); Hypochromasia Slight; MCH 28.3 pg (25.0-35.0); MCV 91.4 fL (80.0-100.0); Mean Platelet Volume 7.2; Platelet Count 201 k/uL (150-450); RBC 4.61 m/uL (4.30-5.90); RDW 14.7 % (11.5-15.5); WBC 8.8 k/uL (3.8-10.6)
[2020-03-25 05:16] LABS: Band Neutrophils % 2 %; Lymphocytes # (M) 1.58 k/uL (1.0-4.8); Monocytes # (M) 0.97 k/uL (0-1.0); Neutrophils % (M) 69 %; Nucleated Red Blood Cells 0 /100 WBC (0-0); Total Cells Counted 100
[2020-03-25] MEDS: PANTOPRAZOLE 40 MG/10 ML VIAL IV SCH (09:09)
[2020-03-25] MEDS: ENOXAPARIN 40 MG/0.4 ML SYRINGE SQ SCH (09:09)
[2020-03-25 10:28] LABS: African American GFR (CKD) 53.1 (60.0-200.0); Albumin 3.8 g/dL (3.80-4.90); Albumin/Globulin Ratio 2.11 (1.60-3.17); Calcium 8.3 mg/dL (8.7-10.3); Globulin 1.8 g/dL (1.6-3.3); Non-African American GFR(CKD) 45.9 (60.0-200.0); Potassium 4.5 mmol/L (3.5-5.5); Total Bilirubin 0.5 mg/dL (0.2-1.2); Total Protein 5.6 g/dL (6.2-8.2)
--- NOTE | 2020-03-25 11:03 | P.PN ---
Subjective Progress Note Date: 03/25/20 CHIEF COMPLAINT: Abdominal pain and distention HISTORY OF PRESENT ILLNESS: Patient seen and examined with Dr. Gresham. He is being followed for a small bowel obstruction. He is passing gas this morning. He is feeling better. White count is down to 8.8. He is afebrile. PHYSICAL EXAM: VITAL SIGNS: Reviewed. GENERAL: Well-developed in no acute distress. HEENT: No sclera icterus. Extraocular movements grossly intact. Moist buccal mucosa. Head is atraumatic, normocephalic. ABDOMEN: Soft. Mildly distended NEUROLOGIC: Alert and oriented. Cranial nerves II through XII grossly intact. ASSESSMENT: 1. Small bowel obstruction 2. History of bladder cancer with neobladder surgery performed in 2007. Has Chahal catheter 3. Prior history of a small bowel obstruction treated conservatively PLAN: -Discontinue NG tube -Start clear liquid diet -Continue GI and DVT prophylaxis Physician Occupational Therapist Per Diem note has been reviewed by physician. Signing provider agrees with the documented findings, assessment, and plan of care. Objective - Vital Signs Vital signs: Vital Signs Temp 98.1 F 03/25/20 05:00 Pulse 60 03/25/20 05:00 Resp 18 03/25/20 05:00 BP 157/76 03/25/20 05:00 Pulse Ox 96 03/25/20 05:00 Intake & Output 03/24/20 03/25/20 03/25/20 18:59 06:59 18:59 Intake Total 0 1000 Output Total 1050 1500 Balance -1050 -500 Intake: Intake, IV Titration 1000 Amount Piperacillin-Tazobactam 3 100 .375 gm In Sodium Chloride 0.9% 100 ml @ 25 mls/hr IVPB Q8HR [facility] Rx# :[id number] Sodium Chloride 0.9% 1, 900 000 ml @ 100 mls/hr IV . Q10H [facility] Rx#:[id number] Oral 0 Output: Gastric Drainage 100 Urine 1050 1400 Uretheral (Chahal) 1050 1400 Other: Voiding Method Indwelling Catheter Indwelling Catheter # Voids 1 # Bowel Movements 1 - Labs CBC & Chem 7: 03/25/20 04:09 03/25/20 04:09 Labs: Abnormal Lab Results - Last 24 Hours (Table) 03/24/20 03/24/20 03/24/20 Range/Units 10:56 14:32 17:57 Chloride (96-109) mmol/L Carbon Dioxide (21.6-31.8) mmol/L BUN (9.0-27.0) mg/dL Est GFR (CKD-EPI)AfAm (60.0-200.0) Est GFR (CKD-EPI)NonAf (60.0-200.0) BUN/Creatinine Ratio (12.00-20.00) Ratio Glucose (70-110) mg/dL Plasma Lactic Acid Yuan 3.2 H* 4.3 H* 3.1 H* (0.7-2.0) mmol/L Calcium (8.7-10.3) mg/dL Total Protein (6.2-8.2) g/dL 03/25/20 Range/Units 04:09 Chloride 114 H (96-109) mmol/L Carbon Dioxide 21.0 L (21.6-31.8) mmol/L BUN 33.0 H (9.0-27.0) mg/dL Est GFR (CKD-EPI)AfAm 53.1 L (60.0-200.0) Est GFR (CKD-EPI)NonAf 45.9 L (60.0-200.0) BUN/Creatinine Ratio 22.00 H (12.00-20.00) Ratio Glucose 125 H (70-110) mg/dL Plasma Lactic Acid Yuan (0.7-2.0) mmol/L Calcium 8.3 L (8.7-10.3) mg/dL Total Protein 5.6 L (6.2-8.2) g/dL Microbiology - Last 24 Hours (Table) 03/24/20 05:40 Blood Culture - Preliminary Blood No Growth after 24 hours 03/23/20 21:34 Urine Culture - Preliminary Urine,Clean Catch
--- NOTE | 2020-03-25 18:01 | P.PN ---
Progress Note - Text Progress Note Date: 03/25/20 - Chief Complaint Abdominal pain Consultation: This is a pleasant 74-year-old patient who follows with Dr. Holland. Chronic stable medical conditions include hyperlipidemia, chronic stable angina from nonobstructive coronary artery disease with 30% lesion per cardiac c atheterization, hypo-testosterone , hyperlipidemia, anxiety. Patient was here in 2079 with a small bowel obstruction had a NG tube placed. Patient bladder cancer 2007 and has a neobladder. Patient yesterday started out with increasing abdominal distention. Had a bowel movement yesterday morning. One episode of vomiting. Had a baseline patient catheterizes himself about 7 times a day. Found to have a small bowel obstruction the ER. NG tube was placed. Good output. Abdomen feeling a bit better this morning. No fever no chills. Today-NG tube remains attached to suction. Feeling better. Decreased abdominal distention. Has passed flatus and had a bowel movement. Review of systems: Was done for constitutional, cardiovascular, GI, pulmonary. relevant finding as above Active Medications Enoxaparin Sodium (Enoxaparin 40 Mg/0.4 Ml Syringe) 40 mg SQ DAILY [facility] Last Admin: 03/25/20 09:09 Dose: 40 mg Documented by: Hydromorphone HCl (Hydromorphone 0.5 Mg/0.5 Ml Syringe) 0.5 mg IVP Q3HR PRN PRN Reason: Moderate Pain Hydromorphone HCl (Hydromorphone 1 Mg/Ml 1 Ml Syringe) 1 mg IVP Q3HR PRN PRN Reason: Severe Pain Last Admin: 03/24/20 13:39 Dose: 1 mg Documented by: Sodium Chloride (Saline 0.9%) 1,000 mls @ 100 mls/hr IV .Q10H [facility] Last Admin: 03/25/20 14:13 Dose: 100 mls/hr Documented by: Piperacillin Sod/Tazobactam (Sod 3.375 gm/ Sodium Chloride) 100 mls @ 25 mls/hr IVPB Q8HR [facility] Last Admin: 03/25/20 15:37 Dose: 25 mls/hr Documented by: Naloxone HCl (Naloxone 0.4 Mg/Ml 1 Ml Vial) 0.2 mg IV Q2M PRN PRN Reason: Opioid Reversal Ondansetron HCl (Ondansetron 4 Mg/2 Ml Vial) 4 mg IVP Q8HR PRN PRN Reason: Nausea And Vomiting Pantoprazole Sodium (Pantoprazole 40 Mg/10 Ml Vial) 40 mg IV DAILY [facility] Last Admin: 03/25/20 09:09 Dose: 40 mg Documented by: Physical examination: VITAL SIGNS: 98.1, 60, 18, 126/70, 100% on room air GENERAL: Laying in bed, awake EYES: Pupils equal. Conjunctiva normal. HEENT: with NG tube to suction. NECK: JVD not raised; masses not palpable. HEART: First and second heart sounds are normal; no edema. LUNGS: Respiratory rate normal; clear to auscultation. ABDOMEN: Soft, decreased distention, no tenderness, normal bowel sounds, liver spleen not palpable, no masses palpable. PSYCH: Alert and oriented x3; mood and affect normal. INVESTIGATIONS, reviewed in the clinical context: White count 8.8 hemoglobin 13.1 potassium 4.5 creatinine 1.5 Previous testing White count 11 hemoglobin 14.2 potassium 4.4 bun 35 creatinine 1.44 Lactic acid 3.0 Patient's creatinine was 1.4 on 02/07/2018 Assessment: -Recurrent acute small bowel obstruction, now has NG tube in place-the clinical improvement --Hyperlipidemia -Chronic stable angina with nonobstructive coronary artery disease with 30% lesion per cardiac catheterization -Hypo-testosterone -Hyperlipidemia -Chronic kidney disease stage III likely nephrosclerosis -Lactic acidosis type II from volume loss. No clinical evidence of sepsis. Plan: Platelet much improved. NG tube can be discontinued and patient was started on clear liquids. Discussed with the patient. Patient has been out of bed in the hallway. Thank you Dr. Gresham.
[2020-03-26] MEDS: PIPERACILLIN-TAZOBACTAM 3.375 GM in SODIUM CHLORIDE 0.9% 100 ML IVPB SCH ×4 (00:26→23:43)
[2020-03-26 06:01] LABS: HCT 38.5 % (39.0-53.0); MCH 28.3 pg (25.0-35.0); MCHC 31.2 g/dL (31.0-37.0); MCV 90.5 fL (80.0-100.0); Platelet Count 179 k/uL (150-450); RBC 4.26 m/uL (4.30-5.90); RDW 14.6 % (11.5-15.5); WBC 7.5 k/uL (3.8-10.6)
[2020-03-26 06:48] LABS: Neutrophils % (M) 64 %; Nucleated Red Blood Cells 0 /100 WBC (0-0); Total Cells Counted 100
[2020-03-26 06:49] LABS: Anisocytosis (M) Present
[2020-03-26 06:50] LABS: Polychromasia Present
[2020-03-26] MEDS: ENOXAPARIN 40 MG/0.4 ML SYRINGE SQ SCH (07:54)
[2020-03-26] MEDS: PANTOPRAZOLE 40 MG/10 ML VIAL IV SCH (07:55)
[2020-03-26] MEDS: SODIUM CHLORIDE 0.9% 1,000 ML IV SCH ×2 (07:55→16:16)
[2020-03-26 09:46] LABS: African American GFR (CKD) 63.2 (60.0-200.0); Albumin 3.6 g/dL (3.80-4.90); Albumin/Globulin Ratio 1.89 (1.60-3.17); Anion Gap 6.2 mmol/L (4.00-12.00); BUN/Creat Ratio 15.38 Ratio (12.00-20.00); Calcium 8.2 mg/dL (8.7-10.3); Carbon Dioxide 22.8 mmol/L (21.6-31.8); Globulin 1.9 g/dL (1.6-3.3); Non-African American GFR(CKD) 54.5 (60.0-200.0); Potassium 3.7 mmol/L (3.5-5.5); Total Bilirubin 0.6 mg/dL (0.3-1.2); Total Protein 5.5 g/dL (6.2-8.2)
--- NOTE | 2020-03-26 11:51 | P.PN ---
Subjective Progress Note Date: 03/26/20 CHIEF COMPLAINT: Abdominal pain and distention HISTORY OF PRESENT ILLNESS: He is being followed for a small bowel obstruction. Patient had NG tube removed yesterday. He is having bowel movements and pas sing gas. No vomiting. His abdominal pain has resolved. He is afebrile. White count 7.5 PHYSICAL EXAM: VITAL SIGNS: Reviewed. GENERAL: Well-developed in no acute distress. HEENT: No sclera icterus. Extraocular movements grossly intact. Moist buccal mucosa. Head is atraumatic, normocephalic. ABDOMEN: Soft. Mildly distended. Nontender with palpation NEUROLOGIC: Alert and oriented. Cranial nerves II through XII grossly intact. ASSESSMENT: 1. Small bowel obstruction resolving 2. History of bladder cancer with neobladder surgery performed in 2007. Has Chahal catheter 3. Prior history of a small bowel obstruction treated conservatively PLAN: -Advance diet to a full liquid diet at lunch and then regular diet at dinner -Anticipate possible discharge tomorrow -Continue GI and DVT prophylaxis Physician Almond Blancher note has been reviewed by physician. Signing provider agrees with the documented findings, assessment, and plan of care. Objective - Vital Signs Vital signs: Vital Signs Temp 98.1 F 03/26/20 10:47 Pulse 51 L 03/26/20 10:47 Resp 16 03/26/20 10:47 BP 165/66 03/26/20 10:47 Pulse Ox 99 03/26/20 10:47 Intake & Output 03/25/20 03/26/20 03/26/20 18:59 06:59 18:59 Intake Total 800 1000 Output Total 700 1705 Balance 100 -705 Intake: Intake, IV Titration 800 1000 Amount Piperacillin-Tazobactam 3 100 100 .375 gm In Sodium Chloride 0.9% 100 ml @ 25 mls/hr IVPB Q8HR [facility] Rx# :[id number] Sodium Chloride 0.9% 1, 700 900 000 ml @ 100 mls/hr IV . Q10H [facility] Rx#:[id number] Output: Urine 700 1705 Uretheral (Chahal) 1705 Other: Voiding Method Indwelling Catheter Indwelling Catheter # Bowel Movements 1 - Labs CBC & Chem 7: 03/26/20 04:33 03/26/20 04:33 Labs: Abnormal Lab Results - Last 24 Hours (Table) 03/26/20 03/26/20 Range/Units 04:33 04:33 RBC 4.26 L (4.30-5.90) m/uL Hgb 12.0 L (13.0-17.5) gm/dL Hct 38.5 L (39.0-53.0) % Chloride 111 H (96-109) mmol/L Est GFR (CKD-EPI)NonAf 54.5 L (60.0-200.0) Calcium 8.2 L (8.7-10.3) mg/dL Total Protein 5.5 L (6.2-8.2) g/dL Albumin 3.60 L (3.80-4.90) g/dL Microbiology - Last 24 Hours (Table) 03/24/20 05:40 Blood Culture - Preliminary Blood No Growth after 48 hours 03/23/20 21:34 Urine Culture - Final Urine,Clean Catch
--- NOTE | 2020-03-26 23:09 | P.PN ---
Progress Note - Text Progress Note Date: 03/26/20 - Chief Complaint Abdominal pain Consultation: This is a pleasant 74-year-old patient who follows with Dr. Holland. Chronic stable medical conditions include hyperlipidemia, chronic stable angina from nonobstructive coronary artery disease with 30% lesion per cardiac c atheterization, hypo-testosterone , hyperlipidemia, anxiety. Patient was here in 2079 with a small bowel obstruction had a NG tube placed. Patient bladder cancer 2007 and has a neobladder. Patient yesterday started out with increasing abdominal distention. Had a bowel movement yesterday morning. One episode of vomiting. Had a baseline patient catheterizes himself about 7 times a day. Found to have a small bowel obstruction the ER. NG tube was placed. Good output. Abdomen feeling a bit better this morning. No fever no chills. Today-NG tube discontinued. Tolerated clear liquid. Has passed flatus and a small bowel movement today. Has been out of bed. Feeling much better. Review of systems: Was done for constitutional, cardiovascular, GI, pulmonary. relevant finding as above Active Medications Enoxaparin Sodium (Enoxaparin 40 Mg/0.4 Ml Syringe) 40 mg SQ DAILY [facility] Last Admin: 03/26/20 07:54 Dose: 40 mg Documented by: Hydromorphone HCl (Hydromorphone 0.5 Mg/0.5 Ml Syringe) 0.5 mg IVP Q3HR PRN PRN Reason: Moderate Pain Hydromorphone HCl (Hydromorphone 1 Mg/Ml 1 Ml Syringe) 1 mg IVP Q3HR PRN PRN Reason: Severe Pain Last Admin: 03/24/20 13:39 Dose: 1 mg Documented by: Sodium Chloride (Saline 0.9%) 1,000 mls @ 100 mls/hr IV .Q10H [facility] Last Admin: 03/26/20 16:16 Dose: Not Given Documented by: Piperacillin Sod/Tazobactam (Sod 3.375 gm/ Sodium Chloride) 100 mls @ 25 mls/hr IVPB Q8HR [facility] Last Admin: 03/26/20 16:14 Dose: 25 mls/hr Documented by: Naloxone HCl (Naloxone 0.4 Mg/Ml 1 Ml Vial) 0.2 mg IV Q2M PRN PRN Reason: Opioid Reversal Ondansetron HCl (Ondansetron 4 Mg/2 Ml Vial) 4 mg IVP Q8HR PRN PRN Reason: Nausea And Vomiting Pantoprazole Sodium (Pantoprazole 40 Mg/10 Ml Vial) 40 mg IV DAILY [facility] Last Admin: 03/26/20 07:55 Dose: 40 mg Documented by: Physical examination: VITAL SIGNS:98.1, 51, 16, 165 Bicitra 6, 99% room air GENERAL: Laying in bed, we'll comfortable EYES: Pupils equal. Conjunctiva normal. HEENT: with NG tube to suction. NECK: JVD not raised; masses not palpable. HEART: First and second heart sounds are normal; no edema. LUNGS: Respiratory rate normal; clear to auscultation. ABDOMEN: Soft, no distention, no tenderness, normal bowel sounds, liver spleen not palpable, no masses palpable. PSYCH: Alert and oriented x3; mood and affect normal. INVESTIGATIONS, reviewed in the clinical context: white count 7.5 hemoglobin 12 potassium 3.7 creatinine 1.3 Previous testing White count 11 hemoglobin 14.2 potassium 4.4 bun 35 creatinine 1.44 Lactic acid 3.0 Patient's creatinine was 1.4 on 02/07/2018 Assessment: -Recurrent acute small bowel obstruction, now has NG tube in place-improved --Hyperlipidemia -Chronic stable angina with nonobstructive coronary artery disease with 30% lesion per cardiac catheterization -Hypo-testosterone -Hyperlipidemia -Chronic kidney disease stage III likely nephrosclerosis -Lactic acidosis type II from volume loss. No clinical evidence of sepsis. Plan: diet is being increased. ambulate, add lisinopril hydrochlorothiazide Thank you Dr. Gresham.
[2020-03-26] MEDS: LISINOPRIL-HCTZ 10-12.5 MG 1 EACH TAB PO SCH (23:42)
[2020-03-27] MEDS: SODIUM CHLORIDE 0.9% 1,000 ML IV SCH ×2 (02:30→13:12)
[2020-03-27 05:12] VITALS: RESP 17
[2020-03-27] MEDS: LISINOPRIL-HCTZ 10-12.5 MG 1 EACH TAB PO SCH (07:26)
[2020-03-27] MEDS: ENOXAPARIN 40 MG/0.4 ML SYRINGE SQ SCH (07:26)
[2020-03-27] MEDS: PIPERACILLIN-TAZOBACTAM 3.375 GM in SODIUM CHLORIDE 0.9% 100 ML IVPB SCH (07:26)
[2020-03-27] MEDS: PANTOPRAZOLE 40 MG/10 ML VIAL IV SCH (07:26)
[2020-03-27] MEDS ORDERED: amLODIPine 2.5 MG TAB PO STA (10:47)
[2020-03-27 11:50] VITALS: BP 146/87; PULSE 67; TEMP 98.3
--- NOTE | 2020-03-27 13:47 | P.DS ---
Providers Date of admission: 03/23/20 21:15 Attending physician: Charly Gresham Consults: 03/24/20 14:38 Consult Physician Routine Consulting Provider: Guillermo Simpson Consult Reason/Comments: medical management Do you want consulting provider notified?: Yes [facility] Course: Discharge diagnosis 1. Small bowel obstruction 2. History of bladder cancer with neobladder surgery performed in 2007. 3. Prior history of a small bowel obstruction treated conservatively 4. Essential hypertension Hospital course This is a 74-year-old male with a known history of bladder cancer and had neobladder surgery performed in 2007. He has a prior history of a small bowel obstruction and chronic pancreatitis. He presented to the emergency room with complaints of abdominal pain and distention. He did have some nausea vomiting. He had NG tube placed in the ER for his small bowel obstruction. Patient underwent conservative treatment for his small bowel obstruction. He had NG tube placed for decompression. He then started having bowel movements. Abdominal pain improved and resolved. He tolerated advancement of diet. He is afebrile. He's been up and ambulating. He is stable for discharge. Physician Technical Sales Support Specialist note has been reviewed by physician. Signing provider agrees with the documented findings, assessment, and plan of care. Patient Condition at Discharge: Stable Plan - Discharge Summary New Discharge Prescriptions: New amLODIPine [Norvasc] 2.5 mg PO DAILY #30 tablet Continue Aspirin EC [Ecotrin Low Dose] 81 mg PO DAILY Ferrous Sulfate [Iron (65 MG Elemental)] 325 mg PO DAILY Vit C/E/Zn/Coppr/Lutein/Zeaxan [Preservision Areds 2 Softgel] 1 cap PO BID Simvastatin 40 mg PO DAILY Sodium Bicarbonate Tab 650 mg PO AC-BID@1200,1800 Fexofenadine/Pseudoephedrine [Rebeca-D 24 Hour Tablet] 1 tab PO DAILY PRN PRN Reason: Allergy Symptoms Ergocalciferol [Vitamin D2 (DRISDOL)] 50,000 unit PO Q14D Sildenafil Citrate 100 mg PO DAILY PRN PRN Reason: e.d. ALPRAZolam [Xanax] 0.5 mg PO BID Sodium Bicarbonate Tab 1,300 mg PO AC-BRKFST Discharge Medication List Aspirin EC [Ecotrin Low Dose] 81 mg PO DAILY 07/27/16 [History] Ferrous Sulfate [Iron (65 MG Elemental)] 325 mg PO DAILY 09/25/18 [History] Fexofenadine/Pseudoephedrine [Rebeca-D 24 Hour Tablet] 1 tab PO DAILY PRN 09/25/18 [History] Simvastatin 40 mg PO DAILY 09/25/18 [History] Sodium Bicarbonate Tab 650 mg PO AC-BID@1200,1800 09/25/18 [History] Vit C/E/Zn/Coppr/Lutein/Zeaxan [Preservision Areds 2 Softgel] 1 cap PO BID 09/25/18 [History] ALPRAZolam [Xanax] 0.5 mg PO BID 03/23/20 [History] Ergocalciferol [Vitamin D2 (DRISDOL)] 50,000 unit PO Q14D 03/23/20 [History] Sildenafil Citrate 100 mg PO DAILY PRN 03/23/20 [History] Sodium Bicarbonate Tab 1,300 mg PO AC-BRKFST 03/23/20 [History] amLODIPine [Norvasc] 2.5 mg PO DAILY #30 tablet 03/27/20 [Rx] Follow up Appointment(s)/Referral(s): Gilberto Holland DO [Primary Care Provider] - 1-2 days Discharge Disposition: HOME SELF-CARE
--- NOTE | 2020-03-27 18:23 | P.PN ---
Progress Note - Text Progress Note Date: 03/27/20 - Chief Complaint Abdominal pain Consultation: This is a pleasant 74-year-old patient who follows with Dr. Holland. Chronic stable medical conditions include hyperlipidemia, chronic stable angina from nonobstructive coronary artery disease with 30% lesion per cardiac c atheterization, hypo-testosterone , hyperlipidemia, anxiety. Patient was here in 2079 with a small bowel obstruction had a NG tube placed. Patient bladder cancer 2007 and has a neobladder. Patient yesterday started out with increasing abdominal distention. Had a bowel movement yesterday morning. One episode of vomiting. Had a baseline patient catheterizes himself about 7 times a day. Found to have a small bowel obstruction the ER. NG tube was placed. Good output. Abdomen feeling a bit better this morning. No fever no chills. NG tube was discontinued. Diet advanced. Today-doing well. Blood pressure running on the higher side. Patient be started on amlodipine. Discussed with the patient. Check his blood pressure daily in the morning. Keep a log. And follow-up with family doctor. Discussed with DIRECTOR COMPENSATION from surgery. Review of systems: Was done for constitutional, cardiovascular, GI, pulmonary. relevant finding as above Current medications reviewed in electronic records Physical examination: VITAL SIGNS: 97.4, 67, 17, 1 4697, GENERAL: Sitting up, comfortable EYES: Pupils equal. Conjunctiva normal. HEENT: with NG tube to suction. NECK: JVD not raised; masses not palpable. HEART: First and second heart sounds are normal; no edema. LUNGS: Respiratory rate normal; clear to auscultation. ABDOMEN: Soft, no distention, no tenderness, normal bowel sounds, liver spleen not palpable, no masses palpable. PSYCH: Alert and oriented x3; mood and affect normal. INVESTIGATIONS, reviewed in the clinical context: white count 7.5 hemoglobin 12 potassium 3.7 creatinine 1.3 Previous testing White count 11 hemoglobin 14.2 potassium 4.4 bun 35 creatinine 1.44 Lactic acid 3.0 Patient's creatinine was 1.4 on 02/07/2018 Assessment: -Recurrent acute small bowel obstruction, now has NG tube in place-improved --Hyperlipidemia -Chronic stable angina with nonobstructive coronary artery disease with 30% lesion per cardiac catheterization -Hypo-testosterone -Hyperlipidemia -Chronic kidney disease stage III likely nephrosclerosis -Lactic acidosis type II from volume loss. No clinical evidence of sepsis. -Essential hypertension-new diagnosis Plan: Amlodipine added. Other medications to continue. Follow with PCP. Thank you Dr. Gresham.
== END 2020-03-27 15:10 | disposition home or self-care (01) | DRG 389 ==
LOC: EC 17:43 → 6NMEDSUR 21:15
PROVIDERS: ADMIT Surgery; ATTEND Surgery
PROC: 0D9670Z Drainage of Stomach with Drainage Device, Via Natural or Artificial Opening (ICD-10-PCS; principal; 2020-03-24)
DX: K56.600 Partial intestinal obstruction, unspecified as to cause (principal); E87.2 Acidosis; E78.5 Hyperlipidemia, unspecified; F41.9 Anxiety disorder, unspecified; I12.9 Hypertensive chronic kidney disease with stage 1 through stage 4 chronic kidney disease, or unspecified chronic kidney disease; N18.3 Chronic kidney disease, stage 3 (moderate); I25.118 Atherosclerotic heart disease of native coronary artery with other forms of angina pectoris; Z96.0 Presence of urogenital implants; Z79.82 Long term (current) use of aspirin; Z98.42 Cataract extraction status, left eye; Z98.41 Cataract extraction status, right eye; Z98.890 Other specified postprocedural states; Z86.010 Personal history of colon polyps; Z85.51 Personal history of malignant neoplasm of bladder; Z79.899 Other long term (current) drug therapy; Z80.9 Family history of malignant neoplasm, unspecified; Z91.041 Radiographic dye allergy status
CPT/HCPCS: 36415; 74177; 80048; 80053; 81001; 82150; 83605; 83690; 85025; 87040; 87086; 96361; 96365; 96375; 96376; 99285

== ENCOUNTER → 2020-04-08 | Outpatient (CLI) | payer MEDICARE ==
--- NOTE | 2020-04-08 09:56 | US ---
EXAMINATION TYPE: US kidneys/renal and bladder DATE OF EXAM: 04/08/2020 COMPARISON: 03/23/2020 CLINICAL HISTORY: N18.3 CKD. CKD stage III, Neuro Bladder EXAM MEASUREMENTS: Right Kidney: 9.3 x 4.3 x 4.8 cm Left Kidney: 10.9 x 4.4 x 4.2 cm Right Kidney: no evidence of hydronephrosis Left Kidney: fullness to renal pelvis Bladder: not fully distended Bilateral Jets seen: no IMPRESSION: Mild fullness of the left renal pelvis with no evidence of nephrolithiasis. Bladder is limited due to incomplete distention but there appears to be bladder wall thickening which should be correlated cli nically for cystitis or mucosal lesion.
== END | disposition home or self-care (01) ==
LOC: RADUSWWP 08:59
PROVIDERS: ATTEND Family Medicine
DX: R93.41 Abnormal radiologic findings on diagnostic imaging of renal pelvis, ureter, or bladder (principal); N18.3 Chronic kidney disease, stage 3 (moderate)
CPT/HCPCS: 76770

== ENCOUNTER 2020-04-18 06:49 | Day surgery (SDC) | payer MEDICARE ==
[2020-04-15 16:11] VITALS: BMI 25.8
[~2020-04-18 06:49] MED LIST changes: +ACETAMINOPHEN TAB 500 MG TAB PO ONE; +HEPARIN SODIUM,PORCINE 5,000 UNIT/ML 1 ML VIAL SQ ONE; +HYDROmorphone 0.5 MG/0.5 ML SYRINGE IVP PRN; +LIDOCAINE 1% (10MG/ML) FOR IV START INTRADERMA PRN; +ONDANSETRON 4 MG/2 ML VIAL IVP ONE
--- NOTE | 2020-04-18 08:30 | P.GSHP ---
History of Present Illness H&P Date: 04/18/20 Chief Complaint: Right upper quadrant pain This a 74-year-old male who second with right quadrant pain. His recent CAT scan shows evidence of large calcified gallstones within the gallbladder. He presents today for laparoscopic cholecystectomy Past Medical History Past Medical History: Coronary Artery Disease (CAD), Cancer, Chest Pain / Angina, Eye Disorder, Hyperlipidemia, Hypertension, Renal Disease Additional Past Medical History / Comment(s): Bladder CA 2008-has neobladder- self cath's., colon polyps, pancreatitis, IBS, macular degeneration left eye, gallstones, skin cancer, recent adm. for small bowel obstruction-resolved w/NG tube, no recent chest pain or problems, just placed on BP during recent admission History of Any Multi-Drug Resistant Organisms: None Reported Past Surgical History: Heart Catheterization Additional Past Surgical History / Comment(s): dillan bladder-due to cancer, sinus surgery, colonoscopy, bhupinder cataracts Past Anesthesia/Blood Transfusion Reactions: No Reported Reaction Smoking Status: Former smoker - Past Family History Mother Family Medical History: Cancer Medications and Allergies Home Medications Medication Instructions Recorded Confirmed Type Aspirin EC [Ecotrin Low Dose] 81 mg PO DAILY 07/27/16 04/18/20 History Ferrous Sulfate [Iron (65 MG 325 mg PO DAILY 09/25/18 04/18/20 History Elemental)] Fexofenadine/Pseudoephedrine 1 tab PO DAILY PRN 09/25/18 04/18/20 History [Rebeca-D 24 Hour Tablet] Simvastatin 40 mg PO DAILY 09/25/18 04/18/20 History Sodium Bicarbonate Tab 650 mg PO AC-BID@1200,1800 09/25/18 04/18/20 History Vit C/E/Zn/Coppr/Lutein/Zeaxan 1 cap PO BID 09/25/18 04/18/20 History [Preservision Areds 2 Softgel] ALPRAZolam [Xanax] 0.5 mg PO BID 03/23/20 04/18/20 History Ergocalciferol [Vitamin D2 50,000 unit PO Q14D 03/23/20 04/18/20 History (DRISDOL)] Sildenafil Citrate 100 mg PO DAILY PRN 03/23/20 04/18/20 History Sodium Bicarbonate Tab 1,300 mg PO AC-BRKFST 03/23/20 04/18/20 History amLODIPine [Norvasc] 2.5 mg PO DAILY #30 tablet 03/27/20 04/18/20 Rx Allergies Allergy/AdvReac Type Severity Reaction Status Date / Time iodine AdvReac sneezing Verified 04/18/20 07:25 Iodine and Iodide Containing AdvReac sneezing Verified 04/18/20 07:25 Produc Surgical - Exam Vital Signs Temp Pulse Resp BP Pulse Ox 97.4 F L 54 L 18 143/81 98 04/18/20 08:02 04/18/20 08:02 04/18/20 08:02 04/18/20 08:02 04/18/20 08:02 - General well developed, well nourished, no distress - Eyes PERRL - ENT normal pinna - Neck no masses - Respiratory normal expansion - Cardiovascular Rhythm: regular - Abdomen Right upper quadrant pain Abdomen: soft Assessment and Plan Assessment: Right upper quadrant pain Cholelithiasis We'll perform laparoscopic cholecystectomy
[2020-04-18] MEDS ORDERED: ROCURONIUM 10 MG/ML (10 ML VIAL) IV ONE (08:39)
[2020-04-18] MEDS ORDERED: PROPOFOL 10 MG/ML 20 ML VIAL IV ONE (08:39)
[2020-04-18] MEDS ORDERED: MIDAZOLAM 2 MG/2 ML VIAL ONE (08:39)
[2020-04-18] MEDS ORDERED: GLYCOPYRROLATE 0.2 MG/ML 2 ML VIAL ONE (08:39)
[2020-04-18] MEDS ORDERED: SUCCINYLCHOLINE CHLORIDE 100 MG/5 ML SYR IV ONE (08:39)
[2020-04-18] MEDS ORDERED: NEOSTIGMINE 1 MG/ML 10 ML VIAL ONE (08:39)
[2020-04-18] MEDS ORDERED: fentaNYL (PF) 50 MCG/ML 2 ML AMP ONE (08:39)
[2020-04-18] MEDS ORDERED: LIDOCAINE 1% INJ 10MG/ML (20 ML MDV) ONE (08:39)
[2020-04-18] MEDS ORDERED: BUPIVACAINE (PF) 0.5% 30 ML VIAL SQ ONE (09:05)
--- NOTE | 2020-04-18 09:19 | P.OP ---
Date of Procedure: 04/18/20 Preoperative Diagnosis: Cholelithiasis Postoperative Diagnosis: Cholelithiasis Procedure(s) Performed: Laparoscopic cholecystectomy Anesthesia: ALICE Surgeon: Charly Gresham Estimated Blood Loss (ml): 5 Pathology: other (Gallbladder) Condition: stable Disposition: PACU Description of Procedure: The patient was placed on the operating table. The patient received a general endotracheal tube anesthesia. The patients abdomen was prepped and draped in the usual sterile fashion. Through an infraumbilical stab incision, the fascia of the anterior abdominal wall was grasped with a pair of Kochers and then the Veress needle was placed in the peritoneal cavity. Position of the Veress needle was confirmed with positive drop test. The abdomen was then insufflated. After adequate insufflation, the 10 mm trocar was placed in the peritoneal cavity. Following this the laparoscope was placed in the peritoneal cavity. The patient was placed in the head-up, right side up position and then a 5 mm trocar was placed in the right lateral and right subcostal position under direct visualization. A 8 mm trocar was placed in the epigastric position. The gallbladder was grasped in the fundus and infundibulum. Traction on the gallbladder was placed in the lateral and the cephalad positions. The triangle of Calot was visualized.. The cystic duct was bluntly dissected until the union of the cystic duct and common bile duct was seen. A critical view of safety was achieved. The cystic duct was then divided and sealed with the Harmonic scissors. A PDS Endoloop was then placed throughout the cystic duct stump. The cystic artery divided and sealed with the Harmonic scissors. The gallbladder was then removed from the liver bed using Harmonic scissors. The gallbladder was then extracted through the epigastric port site. Operative field was checked for any bleeding spots and Harmonic scissors was used to coagulate the liver bed. The abdomen was irrigated. The trocars were removed. The skin was closed using interrupted 3-0 Vicryl suture. Dermabond dressing were applied. The patient tolerated the procedure well.
[2020-04-18 09:32] VITALS: TEMP 96.9
[2020-04-18] MEDS ORDERED: LACTATED RINGERS 1,000 ML IV ONE (09:40)
[2020-04-18 11:06] VITALS: BP 153/85; PULSE 49; RESP 16
== END 2020-04-18 11:50 | disposition home or self-care (01) ==
LOC: OR 06:49
PROVIDERS: ATTEND Surgery
DX: K80.10 Calculus of gallbladder with chronic cholecystitis without obstruction (principal); I25.10 Atherosclerotic heart disease of native coronary artery without angina pectoris; E78.5 Hyperlipidemia, unspecified; I10 Essential (primary) hypertension; N28.9 Disorder of kidney and ureter, unspecified; Z86.010 Personal history of colon polyps; Z85.51 Personal history of malignant neoplasm of bladder; K58.9 Irritable bowel syndrome, unspecified; H35.30 Unspecified macular degeneration; Z85.828 Personal history of other malignant neoplasm of skin; Z87.19 Personal history of other diseases of the digestive system; Z93.6 Other artificial openings of urinary tract status; Z97.2 Presence of dental prosthetic device (complete) (partial); Z98.42 Cataract extraction status, left eye; Z98.41 Cataract extraction status, right eye; Z98.890 Other specified postprocedural states; Z79.82 Long term (current) use of aspirin; Z79.899 Other long term (current) drug therapy; Z91.048 Other nonmedicinal substance allergy status
CPT/HCPCS: 88304; 47562; J2250; J1644; J2710; J0690; J2405; J2001; J3010; J0330; J2704; J1170

== ENCOUNTER → 2020-07-29 | Outpatient (CLI) | payer MEDICARE ==
[2020-07-29 17:25] LABS: Basophils # (A) 0.1 k/uL (0-0.2); Basophils % (A) 1 %; Eosinophils # (A) 0.4 k/uL (0-0.7); Eosinophils % (A) 6 %; HCT 40.3 % (39.0-53.0); HGB 13.2 gm/dL (13.0-17.5); Lymphocytes # (A) 1.6 k/uL (1.0-4.8); Lymphocytes % (A) 24 %; MCH 28.7 pg (25.0-35.0); MCHC 32.7 g/dL (31.0-37.0); MCV 87.7 fL (80.0-100.0); Mean Platelet Volume 7.1; Monocytes # (A) 3.4 k/uL (0-1.0); Monocytes % (A) 51 %; Neutrophils # (A) 0.6 k/uL (1.3-7.7); Neutrophils % (A) 9 %; Platelet Count 179 k/uL (150-450); RDW 14.8 % (11.5-15.5); WBC 6.7 k/uL (3.8-10.6)
[2020-07-29 17:43] LABS: Basophils # (M) 0.07 k/uL (0-0.2); Bilirubin,Urine Negative (Negative); Blood,Urine Negative (Negative); Color,Urine Light Yellow; Eosinophils # (M) 0.34 k/uL (0-0.7); Glucose,Urine (UA) Negative (Negative); Ketones,Urine Negative (Negative); Large Platelets Present; Leukocyte Esterase,Urine Negative (Negative); Lymphocytes # (M) 2.14 k/uL (1.0-4.8); Monocytes # (M) 0.54 k/uL (0-1.0); Neutrophils # (M) 3.62 k/uL (1.3-7.7); Neutrophils % (M) 54 %; Nitrite,Urine Negative (Negative); Nucleated Red Blood Cells 0 /100 WBC (0-0); Protein,Urine Trace (Negative); Specific Gravity,Urine 1.013 (1.001-1.035); Total Cells Counted 100; Urobilinogen,Urine <2.0 mg/dL (<2.0)
[2020-07-29 17:44] LABS: Mucus,Urine Many /hpf; RBC,Urine 2 /hpf (0-5); WBC,Urine 15 /hpf (0-5)
[2020-07-29 17:46] LABS: Appearance,Urine Clear (Clear)
[2020-07-30 06:43] LABS: Ferritin 40.5 ng/mL (22.0-322.0)
[2020-07-30 23:38] LABS: % Iron Saturation 11.86 (15.00-50.00); African American GFR (CKD) 62.7 (60.0-200.0); Albumin 4.4 g/dL (3.80-4.90); Albumin/Globulin Ratio 2.1 (1.60-3.17); BUN/Creat Ratio 33.08 Ratio (12.00-20.00); Calcium 9.3 mg/dL (8.7-10.3); Globulin 2.1 g/dL (1.6-3.3); Non-African American GFR(CKD) 54.1 (60.0-200.0); Phosphorus 4.3 mg/dL (2.4-5.1); Potassium 4.6 mmol/L (3.5-5.5); Total Bilirubin 0.4 mg/dL (0.2-1.2); Total Protein 6.5 g/dL (6.2-8.2); Uric Acid 5.4 mg/dL (3.7-8.7)
== END | disposition home or self-care (01) ==
LOC: LABWHC1 16:12
PROVIDERS: ATTEND Nurse Practitioner Family
DX: D64.9 Anemia, unspecified (principal); N39.0 Urinary tract infection, site not specified; N25.81 Secondary hyperparathyroidism of renal origin; E55.9 Vitamin D deficiency, unspecified; M10.9 Gout, unspecified; N18.30 Chronic kidney disease, stage 3 unspecified
CPT/HCPCS: 36415; 80053; 81003; 82306; 82728; 83540; 83550; 83735; 83970; 84100; 84550; 85025

== ENCOUNTER → 2020-12-30 | Outpatient (CLI) | payer MEDICARE ==
[2020-12-30 16:52] LABS: HCT 41.8 % (39.0-53.0); MCH 29.6 pg (25.0-35.0); MCHC 33.4 g/dL (31.0-37.0); MCV 88.7 fL (80.0-100.0); Mean Platelet Volume 6.9; Platelet Count 198 k/uL (150-450); RBC 4.71 m/uL (4.30-5.90); RDW 15.1 % (11.5-15.5); WBC 8.8 k/uL (3.8-10.6)
[2020-12-30 17:09] LABS: Potassium 4.4 mmol/L (3.5-5.1)
== END | disposition home or self-care (01) ==
LOC: LABPAT 16:07
PROVIDERS: ATTEND Internal Medicine Cardiovascular Disease
DX: Z01.812 Encounter for preprocedural laboratory examination (principal); I34.0 Nonrheumatic mitral (valve) insufficiency
CPT/HCPCS: 36415; 80051; 82565; 84520; 85027

== ENCOUNTER 2021-01-15 07:27 | Day surgery (SDC) | payer MEDICARE ==
[2021-01-13 09:07] VITALS: BMI 27.7
[2021-01-15 08:28] VITALS: TEMP 97.2
[2021-01-15] MEDS ORDERED: SODIUM CHLORIDE 0.9% 500 ML 500 ML IV ONE (08:29)
[2021-01-15] MEDS ORDERED: fentaNYL (PF) 50 MCG/ML 2 ML AMP ONE (08:46)
[2021-01-15] MEDS ORDERED: BENZOCAINE SPRAY 1 CAN TOPICAL ONE ×2 (08:54→09:07)
[2021-01-15] MEDS ORDERED: MIDAZOLAM 2 MG/2 ML VIAL IV ONE (09:07)
[2021-01-15] MEDS ORDERED: fentaNYL (PF) 50 MCG/ML 2 ML AMP IV ONE (09:10)
[2021-01-15] MEDS ORDERED: SODIUM CHLORIDE 0.9% 1,000 ML IV SCH (09:45)
--- NOTE | 2021-01-15 09:50 | ECHOT ---
TRANSESOPHAGEAL ECHOCARDIOGRAM PROCEDURE PERFORMED: Transesophageal echo. INDICATION: Mitral regurgitation. PROCEDURE NOTE: After obtaining informed consent, transesophageal echocardiogram is performed in left lateral position using an Omni plane probe. Local and IV sedation were obtained using Xylocaine spray, 2 mg of Versed and 50 mcg of fentanyl. The patient tolerated the procedure well without any obvious immediate complications. The patient had 11 minute of moderate conscious sedation. We performed 2D M-mode color Doppler and spectral analysis. FINDIN. Mitral valve shows mitral valve leaflets that are thickened with mild anterior mitral valve prolapse with dilated mitral anulus. There is moderate central mitral regurgitation noted. 2. Left atrium appears mildly enlarged. 3. Right atrium and right ventricle seen within normal limits. 4. Left ventricle has mild diffuse global hypokinesis with an ejection fraction of 45%. Aortic valve is a 3-leaflet valve. There is no evidence of aortic stenosis or regurgitation. 5. Tricuspid valve appears normal. 6. Interatrial septum: There is evidence of [id number] shunt by color-flow Doppler, but no evidence of atnva-si-jwiv shunt by agitated saline contrast study. Aorta appears normal. CONCLUSIONS: 1. Moderate central mitral regurgitation with dilated mitral anulus and thickened mitral leaflets with mild prolapse of the anterior mitral leaflet. 2. Mild left ventricular systolic dysfunction. 3. Evidence of xznq-kq-[id number] shunt across the interatrial septum. PLAN: We will continue with medical therapy and watchful waiting at this time. MMODL / IJN: [id number] /
[2021-01-15 10:33] VITALS: RESP 18
[2021-01-15 10:37] VITALS: BP 104/61; PULSE 53
== END 2021-01-15 10:46 | disposition home or self-care (01) ==
LOC: CATHCVL 07:27
PROVIDERS: ATTEND Internal Medicine Cardiovascular Disease
DX: I34.1 Nonrheumatic mitral (valve) prolapse (principal); I34.0 Nonrheumatic mitral (valve) insufficiency; I25.10 Atherosclerotic heart disease of native coronary artery without angina pectoris; I10 Essential (primary) hypertension; E78.2 Mixed hyperlipidemia; Z87.891 Personal history of nicotine dependence; Z91.048 Other nonmedicinal substance allergy status; Z85.51 Personal history of malignant neoplasm of bladder; Z90.6 Acquired absence of other parts of urinary tract; I38 Endocarditis, valve unspecified; Z82.49 Family history of ischemic heart disease and other diseases of the circulatory system; Z79.82 Long term (current) use of aspirin; Z79.899 Other long term (current) drug therapy
CPT/HCPCS: 93312; 93320; 93325; J2250; J3010

== ENCOUNTER → 2022-01-06 | Outpatient (CLI) | payer MEDICARE ==
[2022-01-06 15:00] LABS: African American GFR (CKD) 48.5 (60.0-200.0); Anion Gap 11.5 mmol/L (10.00-18.00); BUN/Creat Ratio 19.94 Ratio (12.00-20.00); Blood Urea Nitrogen 31.9 mg/dL (9.0-27.0); Carbon Dioxide 17.5 mmol/L (20.0-27.5); Non-African American GFR(CKD) 41.8 (60.0-200.0); Potassium 4.6 mmol/L (3.5-5.5)
== END | disposition home or self-care (01) ==
LOC: LABWHC1 08:05
PROVIDERS: ATTEND Physician Assistant
DX: Z08 Encounter for follow-up examination after completed treatment for malignant neoplasm (principal); Z85.51 Personal history of malignant neoplasm of bladder
CPT/HCPCS: 36415; 80048

== ENCOUNTER → 2022-02-22 | Outpatient (CLI) | payer MEDICARE ==
[2022-02-22 08:32] LABS: Appearance,Urine Clear (Clear); Bilirubin,Urine Negative (Negative); Blood,Urine Negative (Negative); Color,Urine Light Yellow; Glucose,Urine (UA) Negative (Negative); Ketones,Urine Negative (Negative); Leukocyte Esterase,Urine Negative (Negative); Nitrite,Urine Negative (Negative); PH, Urine 6.5 (5.0-8.0); Protein,Urine Trace (Negative); Specific Gravity,Urine 1.011 (1.001-1.035); Urobilinogen,Urine <2.0 mg/dL (<2.0)
[2022-02-22 10:50] LABS: HCT 40.8 % (39.6-50.0); HGB 13.1 g/dL (13.0-17.0); MCH 29.1 pg (27.0-32.0); MCHC 32.1 g/dL (32.0-37.0); MCV 90.7 fL (80.0-97.0); Mean Platelet Volume 9.5 fL (9.5-12.2); NRBC Per 100 WBC 0 /100 WBCS (0.0-0.0); Platelet Count 185 X 10*3/uL (140-440); RDW 14.5 % (11.5-14.5); WBC 6.12 X 10*3/uL (4.50-10.00)
[2022-02-22 11:14] LABS: % Iron Saturation 13.27 (15.00-50.00); African American GFR (CKD) 48.5 (60.0-200.0); Albumin 4.2 g/dL (3.8-4.9); Albumin/Globulin Ratio 1.39 (1.60-3.17); Anion Gap 12.5 mmol/L (10.00-18.00); BUN/Creat Ratio 19.69 Ratio (12.00-20.00); Blood Urea Nitrogen 31.5 mg/dL (9.0-27.0); Calcium 9.3 mg/dL (8.7-10.3); Globulin 3.1 g/dL (1.6-3.3); Magnesium 2.1 mg/dL (1.5-2.4); Non-African American GFR(CKD) 41.8 (60.0-200.0); Phosphorus 3.4 mg/dL (2.4-5.1); Potassium 4.6 mmol/L (3.5-5.5); Total Bilirubin 0.3 mg/dL (0.30-1.20); Total Protein 7.3 g/dL (6.2-8.2); Uric Acid 6.2 mg/dL (3.7-8.7)
== END | disposition home or self-care (01) ==
LOC: LABWHC1 06:59
PROVIDERS: ATTEND Nurse Practitioner Family
DX: N18.30 Chronic kidney disease, stage 3 unspecified (principal); N39.0 Urinary tract infection, site not specified; N25.81 Secondary hyperparathyroidism of renal origin; E55.9 Vitamin D deficiency, unspecified; M10.9 Gout, unspecified; D63.1 Anemia in chronic kidney disease
CPT/HCPCS: 36415; 80053; 81003; 82306; 82728; 83540; 83550; 83735; 83970; 84100; 84550; 85027

== ENCOUNTER → 2022-04-13 | Outpatient (CLI) | payer MEDICARE ==
--- NOTE | 2022-04-13 13:49 | XR ---
EXAMINATION TYPE: XR bone survey complete DATE OF EXAM: 04/13/2022 COMPARISON: NONE HISTORY: Abnormal blood work Bony calvarium : 2 views of the bony calvarium demonstrate. No evidence of osseous lesion Spine: Two views of the cervical, thoracic and lumbar spines are submitted. Diffuse osteopenia with multilevel hypertrophic degenerative changes noted definitive osseous lesions curvature of the spine suggesting scoliosis. Calcification of the soft tissue neck likely related to chronic or chronic PELVIS: Single view of the pelvis demonstrates. Postsurgical changes involving the pelvis. No destru ctive or osteoblastic lesions. Degenerative changes lower lumbar spine. UPPER EXTREMITIES: Two views of the upper extremities. No evidence of osseous lesion. LOWER EXTREMITIES: 2 views of the lower extremities. Hypertrophic change of the acetabulum bilateral ly. No intraosseous lesions. Vascular calcifications seen. Calcifications in the mid abdomen are seen which may be related to the pancreas correlate for history of previous pancreatitis. Hyperinflation suggests COPD and there is borderline cardiomegaly. Atheros clerotic changes of aorta and subsegmental changes at the lung bases with atelectasis IMPRESSION: 1. No diagnostic evidence of intraosseous lesion.
== END | disposition home or self-care (01) ==
LOC: RADXRMAIN 12:55
PROVIDERS: ATTEND Internal Medicine Hematology & Oncology
DX: D47.2 Monoclonal gammopathy (principal); J45.998 Other asthma; I10 Essential (primary) hypertension; E78.5 Hyperlipidemia, unspecified
CPT/HCPCS: 77075

== ENCOUNTER → 2022-05-18 | Outpatient (CLI) | payer MEDICARE ==
[2022-05-18 11:23] LABS: Appearance,Urine Cloudy (Clear); Bilirubin,Urine Negative (Negative); Blood,Urine Negative (Negative); Color,Urine Light Yellow; Glucose,Urine (UA) Negative (Negative); Ketones,Urine Negative (Negative); Leukocyte Esterase,Urine Negative (Negative); Nitrite,Urine Negative (Negative); Protein,Urine Trace (Negative); RBC,Urine 4 /hpf (0-5); Specific Gravity,Urine 1.013 (1.001-1.035); Squamous Epithelial Cell,Urine <1 /hpf (0-4); Urobilinogen,Urine <2.0 mg/dL (<2.0); WBC,Urine 42 /hpf (0-5)
[2022-05-18 14:33] LABS: Basophils # (A) 0.06 X 10*3/uL (0.00-0.10); Basophils % (A) 0.9 %; Eosinophils % (A) 4.3 %; HCT 41.6 % (39.6-50.0); HGB 13.5 g/dL (13.0-17.0); Immature Grans, Automated 0.3 %; Lymphocytes # (A) 1.26 X 10*3/uL (0.90-5.00); Lymphocytes % (A) 17.9 %; MCH 29.3 pg (27.0-32.0); MCHC 32.5 g/dL (32.0-37.0); MCV 90.4 fL (80.0-97.0); Mean Platelet Volume 10.1 fL (9.5-12.2); Monocytes # (A) 0.53 X 10*3/uL (0.20-1.00); Monocytes % (A) 7.5 %; NRBC Per 100 WBC 0 /100 WBCS (0.0-0.0); Neutrophils # (A) 4.88 X 10*3/uL (1.80-7.70); Neutrophils % (A) 69.1 %; Platelet Count 176 X 10*3/uL (140-440); RDW 14.6 % (11.5-14.5); WBC 7.05 X 10*3/uL (4.50-10.00)
[2022-05-18 15:55] LABS: % Iron Saturation 26.63 (15.00-50.00); African American GFR (CKD) 51.6 (60.0-200.0); Albumin 4.3 g/dL (3.8-4.9); Albumin/Globulin Ratio 1.55 (1.60-3.17); Anion Gap 16.4 mmol/L (10.00-18.00); BUN/Creat Ratio 22.32 Ratio (12.00-20.00); Blood Urea Nitrogen 33.7 mg/dL (9.0-27.0); Calcium 9.2 mg/dL (8.7-10.3); Carbon Dioxide 17.8 mmol/L (20.0-27.5); Globulin 2.8 g/dL (1.6-3.3); Magnesium 2.1 mg/dL (1.5-2.4); Non-African American GFR(CKD) 44.5 (60.0-200.0); Phosphorus 3.6 mg/dL (2.4-5.1); Potassium 4.9 mmol/L (3.5-5.5); Total Bilirubin 0.5 mg/dL (0.30-1.20); Total Protein 7.1 g/dL (6.2-8.2); Uric Acid 7.5 mg/dL (3.7-8.7)
[2022-05-18 18:50] LABS: Urine Creatinine 85.3 mg/dL (39.0-259.0)
== END | disposition home or self-care (01) ==
LOC: LABWHC1 09:09
PROVIDERS: ATTEND Internal Medicine
DX: N18.31 Chronic kidney disease, stage 3a (principal); D64.9 Anemia, unspecified; N39.0 Urinary tract infection, site not specified; E21.3 Hyperparathyroidism, unspecified; E55.9 Vitamin D deficiency, unspecified; M10.9 Gout, unspecified
CPT/HCPCS: 36415; 80053; 81001; 82043; 82306; 82570; 82728; 83540; 83550; 83735; 83970; 84100; 84550; 85025

== ENCOUNTER → 2022-07-28 | Outpatient (CLI) | payer MEDICARE ==
[2022-07-29 02:59] LABS: ALT 50 U/L (10-49); AST 34 U/L (14-35); Chol/HDL Ratio 2.89 Ratio; LDL Cholesterol,Calculated 31.9 mg/dL (0.0-131.0)
== END | disposition home or self-care (01) ==
LOC: LABWHC1 07:01
PROVIDERS: ATTEND Internal Medicine Interventional Cardiology
DX: E78.2 Mixed hyperlipidemia (principal)
CPT/HCPCS: 36415; 80061; 84450; 84460

== ENCOUNTER → 2022-11-04 | Outpatient (CLI) | payer MEDICARE ==
[2022-11-04 20:40] LABS: ALT 27 U/L (10-49); AST 19 U/L (14-35); Chol/HDL Ratio 3.22 Ratio; LDL Cholesterol,Calculated 38.5 mg/dL (0.0-131.0)
== END | disposition home or self-care (01) ==
LOC: LABWHC1 07:08
PROVIDERS: ATTEND Internal Medicine Cardiovascular Disease
DX: E78.2 Mixed hyperlipidemia (principal)
CPT/HCPCS: 36415; 80061; 84450; 84460

== ENCOUNTER → 2023-02-10 | Outpatient (CLI) | payer MEDICARE ==
[2023-02-10 12:15] LABS: Basophils # (A) 0.07 X 10*3/uL (0.00-0.10); Basophils % (A) 0.9 %; Eosinophils # (A) 0.36 X 10*3/uL (0.04-0.35); Eosinophils % (A) 4.9 %; HGB 13.1 d/dL (13.0-17.0); Lymphocytes # (A) 1.65 X 10*3/uL (0.90-5.00); Lymphocytes % (A) 22.4 %; MCH 29.7 pg (27.0-32.0); Mean Platelet Volume 9.8 FL (9.5-12.2); Monocytes # (A) 0.65 X 10*3/uL (0.20-1.00); Monocytes % (A) 8.8 %; NRBC Per 100 WBC 0 X 10*3/uL (0.00-0.01); Neutrophils # (A) 4.62 X 10*3/uL (1.80-7.70); Neutrophils % (A) 62.7 %; Platelet Count 178 X 10*3/uL (140-440); RBC 4.41 X 10*6/uL (4.40-5.60); RDW 14.6 % (11.5-14.5); WBC 7.37 X 10*3/uL (4.50-10.00)
[2023-02-10 12:36] LABS: % Iron Saturation 12.15 (15.00-50.00); ALT 30 U/L (10-49); AST 26 U/L (14-35); Albumin 4.5 d/dL (3.8-4.9); Alkaline Phosphatase 88 U/L (41-126); Blood Urea Nitrogen 37.6 mg/dL (9.0-27.0); Calcium 9.6 mg/dL (8.7-10.3); Carbon Dioxide 19.4 mmol/L (21.6-31.8); Chloride 106 mmol/L (96-109); Glucose 113 mg/dL (70-110); Iron 48 UG/DL (65-175); Phosphorus 3.5 mg/dL (2.4-5.1); Potassium 5.2 mmol/L (3.5-5.5); Sodium 139 mmol/L (135-145); Total Bilirubin 0.3 mg/dL (0.3-1.2); Total Iron Binding Capacity 395 UG/DL (228-460); Total Protein 7.5 d/dL (6.2-8.2); Uric Acid 6.7 mg/dL (3.7-8.7)
[2023-02-10 22:26] LABS: Appearance,Urine Clear (Clear); Bilirubin,Urine Negative (Negative); Blood,Urine Negative (Negative); Color,Urine Yellow (Yellow); Ketones,Urine Negative (Negative); Nitrite,Urine Negative (Negative); Specific Gravity,Urine 1.013 (1.001-1.030); Urobilinogen,Urine 0.2 E.U./DL
[2023-02-10 23:42] LABS: Urine Creatinine 75.6 mg/dL (39.0-259.0)
== END | disposition home or self-care (01) ==
LOC: LABWHC1 06:50
PROVIDERS: ATTEND Internal Medicine Nephrology
DX: E55.9 Vitamin D deficiency, unspecified (principal); N39.0 Urinary tract infection, site not specified; E21.3 Hyperparathyroidism, unspecified; M10.9 Gout, unspecified; D63.1 Anemia in chronic kidney disease; R80.9 Proteinuria, unspecified
CPT/HCPCS: 36415; 80053; 81003; 82043; 82306; 82570; 82728; 83540; 83550; 83735; 83970; 84100; 84550; 85025

== ENCOUNTER → 2023-05-11 | Outpatient (CLI) | payer MEDICARE ==
[2023-05-11 16:31] LABS: HCT 40.3 % (39.6-50.0); HGB 13.2 d/dL (13.0-17.0); MCH 29.9 pg (27.0-32.0); MCHC 32.8 d/dL (32.0-37.0); MCV 91.4 FL (80.0-97.0); Mean Platelet Volume 9.8 FL (9.5-12.2); NRBC Per 100 WBC 0 X 10*3/uL (0.00-0.01); Platelet Count 202 X 10*3/uL (140-440); RBC 4.41 X 10*6/uL (4.40-5.60); RDW 13.8 % (11.5-14.5); WBC 8.88 X 10*3/uL (4.50-10.00)
[2023-05-11 16:40] LABS: % Iron Saturation 19.09 (15.00-50.00); ALT 34 U/L (10-49); AST 23 U/L (14-35); Albumin 4.1 d/dL (3.8-4.9); Albumin/Globulin Ratio 1.46 Ratio (1.60-3.17); Alkaline Phosphatase 77 U/L (41-126); Blood Urea Nitrogen 36.1 mg/dL (9.0-27.0); Calcium 9.2 mg/dL (8.7-10.3); Carbon Dioxide 18.5 mmol/L (21.6-31.8); Chloride 107 mmol/L (96-109); Globulin 2.8 d/dL (1.6-3.3); Glucose 130 mg/dL (70-110); Iron 71 UG/DL (65-175); Magnesium 1.9 mg/dL (1.5-2.4); Potassium 4.9 mmol/L (3.5-5.5); Sodium 138 mmol/L (135-145); Total Bilirubin 0.3 mg/dL (0.3-1.2); Total Iron Binding Capacity 372 UG/DL (228-460); Total Protein 6.9 d/dL (6.2-8.2); Uric Acid 7.3 mg/dL (3.7-8.7)
[2023-05-11 20:18] LABS: Appearance,Urine Clear (Clear); Bilirubin,Urine Negative (Negative); Blood,Urine Negative (Negative); Color,Urine Yellow (Yellow); Ketones,Urine Negative (Negative); Nitrite,Urine Negative (Negative); Specific Gravity,Urine 1.014 (1.001-1.030); Urobilinogen,Urine 0.2 E.U./DL
[2023-05-11 20:53] LABS: Urine Creatinine 76.7 mg/dL (39.0-259.0)
== END | disposition home or self-care (01) ==
LOC: LABWHC1 12:11
PROVIDERS: ATTEND Internal Medicine Nephrology
DX: N25.81 Secondary hyperparathyroidism of renal origin (principal); N18.31 Chronic kidney disease, stage 3a; D63.1 Anemia in chronic kidney disease; N39.0 Urinary tract infection, site not specified; E55.9 Vitamin D deficiency, unspecified; M10.9 Gout, unspecified
CPT/HCPCS: 36415; 80053; 81003; 82043; 82306; 82570; 82728; 83540; 83550; 83735; 83970; 84550; 85027

== ENCOUNTER → 2023-07-19 | Outpatient (CLI) | payer MEDICARE ==
--- NOTE | 2023-07-20 12:15 | MR ---
EXAMINATION TYPE: MR lumbar spine wo con DATE OF EXAM: 07/19/2023 COMPARISON: None HISTORY: 78-year-old male M54.50, Lower back pain, LLE radiculopathy. TECHNIQUE: Multiplanar, multisequence images of the lumbar spine were acquired without IV contrast. FINDINGS: Vertebral body heights are preserved. Alignment is maintained. Mild multilevel degenerative disc disease characterized by disc desiccation and mild disc bulging. Some fatty Modic type II endplate change at L1-L2, L2-L3, L5-S1. Also, some edematous Modic type I endplate change toward the left L3-L4. Otherwise, no suspicious bone marrow replacement. Conus medullaris is normal. No large focal disc herniation or significant spinal canal stenosis is seen. Facet arthropathy mid to lower lumbar spine. On the left, changes result in mild neuroforaminal stenoses at L2-L3 and L3-L4. More moderate at L5-S 1. On the right, changes result in mild neuroforaminal stenosis at L2-L3. More moderate at L5-S1. No prevertebral or paravertebral soft tissue. Ectatic upper abdominal aorta 2.8 cm. IMPRESSION: 1. Mild multilevel degenerative disc disease and facet arthropathy. Scattered Modic type II fatty end plate change is present. In addition, there is edematous Modic type I endplate change towards the lef t at L3-L4. 2. No large focal disc herniation or significant spinal canal stenosis. 3. Variable mild neuroforaminal narrowing as outlined above, moderate on both sides at L5-S1.
== END | disposition home or self-care (01) ==
LOC: RADMRIMAIN 10:19
PROVIDERS: ATTEND Orthopaedic Surgery
DX: M51.16 Intervertebral disc disorders with radiculopathy, lumbar region (principal); M47.26 Other spondylosis with radiculopathy, lumbar region; M99.73 Connective tissue and disc stenosis of intervertebral foramina of lumbar region
CPT/HCPCS: 72148

== ENCOUNTER → 2024-11-05 | Outpatient (CLI) | payer MEDICARE ==
--- NOTE | 2024-11-05 14:56 | CT ---
EXAMINATION TYPE: High-resolution CT chest DATE OF EXAM: 11/05/2024 11:37 AM COMPARISON: Radiograph 10/08/2024 CLINICAL INDICATION: Male, 79 years old with history of J84.9 INTERSTITIAL PULMONARY DISEASE, UNSPECI FIED; PHH, Interstitial pulmonary disease, SOB TECHNIQUE: High-resolution CT scanning of the chest utilizing 1 mm slice thickness and 1 Per HRCT protocol. Both inspiratory and expiratory phase imaging along with both supine and prone destiny ging per protocol. No IV contrast. CT DLP: 883 mGycm, Automated exposure control for dose reduction was used. FINDINGS: Heart normal size with trace pericardial fluid. Mild aneurysm ascending aorta 4.1 cm. Mild atherosclerotic arch calcifications with conventional arch vessel branching anatomy. There is mild aneurysm measuring descending thoracic aorta up to 3.2 cm. No thoracic lymphadenopathy by CT size criteria. There is some early honeycombing at the lung bases. Subpleural reticular change throughout the remain janina of the lungs. Associated mild groundglass densities at the lung bases along with mild bronchiolec tasis also at the lung bases. HRCT technique limits assessment for small pulmonary nodules. Moderate diffuse bronchial wall thickening minimal biapical pleural parenchymal change. Scattered mosaic atten uation on the excretory phase. No pleural effusion. Visualized upper abdomen shows diminished attenuation of the liver parenchyma. There is also atrophy of the pancreas with multiple calcifications. IMPRESSION: 1. HRCT confirming interstitial lung disease. There is diffuse subpleural reticular fibrosis along wi th bibasilar groundglass. Given early honeycombing at the lung bases, correlate for UIP/IPF versus fi brotic NSIP. 2. Air trapping on expiratory phase suggesting concurrent small airways disease. 3. 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 4. Severe hepatic steatosis. Appropriate clinical management is advised. [facility], , 11/05/2024 2:54 PM
== END | disposition home or self-care (01) ==
LOC: RADCTMAIN 09:59
PROVIDERS: ATTEND Internal Medicine
DX: J84.9 Interstitial pulmonary disease, unspecified (principal); K76.0 Fatty (change of) liver, not elsewhere classified; J84.10 Pulmonary fibrosis, unspecified; I70.0 Atherosclerosis of aorta
CPT/HCPCS: 71250